=== PATIENT | male | born 1970 | race Caucasian/White ===

== ENCOUNTER 2018-01-10 13:32 | Emergency (ER) | payer MEDICARE, MEDICAID ==
--- NOTE | 2018-01-10 13:46 | Emergency Department Record ---
History of Present Illness - General Chief Complaint: Chest Pain Stated Complaint: chest pain,graham Time Seen by Provider: 01/10/18 13:34 Source: Patient Mode of Arrival: Ambulatory Limitations: No limitations - History of Present Illness Initial Comments: 47 yo male presents with chest pain and shortness of breath for about 3 hours. The onset was about 11am today. He states the pain is sharp. The pain radiates to the left arm. He states he feels short of breath as well. He denies a history of CAD. He states he has CHF and a history of PE. He had a heart cath in 2014 that did not demonstrate any occlusive CAD. He has some chronic leg swelling. No fever, chills, cough. He is on Eliquis for the diagnosis of PE. Dr Sauer is his body and fender mechanic. Complaint: Chest pain -: Hour(s) (3) Onset: During rest Pain Location: Substernal, Left chest Pain Radiation: LUE Severity: Moderate Quality: Aching, Other (sharp) Consistency: Constant Improves With: Nothing Worsens With: Inspiration Anginal Symptoms: Dyspnea Other Symptoms: Other - Related Data Home Medications Medication Instructions Recorded Confirmed Last Taken Duloxetine HCl [Cymbalta] 60 mg PO DAILY 01/10/18 01/10/18 Unknown Gabapentin [Neurontin] 100 mg PO DAILY 01/10/18 01/10/18 Unknown Metformin HCl 500 mg PO BID 01/10/18 01/10/18 Unknown Allergies Allergy/AdvReac Type Severity Reaction Status Date / Time No Known Drug Allergies Allergy Verified 06/29/15 11:32 Review of Systems Constitutional: Denies: Chills, Fever, Malaise, Weakness Eyes: Denies: Eye discharge ENT: Denies: Congestion, Throat pain Respiratory: Reports: Dyspnea. Denies: Cough, Hemoptysis, Stridor, Wheezes Cardiovascular: Reports: Chest pain, Edema. Denies: Palpitations, Syncope Endocrine: Denies: Fatigue Gastrointestinal: Denies: Abdominal pain, Diarrhea, Nausea, Vomiting Genitourinary: Denies: Hematuria, Urgency Musculoskeletal: Denies: Arthralgia, Back pain, Joint swelling, Myalgia Skin: Denies: Bruising, Change in color, Rash Neurological: Denies: Headache, Numbness, Vertigo, Weakness Psychiatric: Denies: Anxiety Hematological/Lymphatic: Reports: Blood Clots. Denies: Easy bleeding, Easy bruising Past Medical History - SOCIAL HISTORY Smoking Status: Former smoker - RESPIRATORY Hx Respiratory Disorders: Yes Hx Bronchitis: Yes Hx Sleep Apnea: Yes Hx of CPAP: Yes (machine not working) - CARDIOVASCULAR Hx Cardio Disorders: Yes Hx Cardiac Cath: Yes (06/2014 No CAD) Hx Chest Pain: Yes Hx Edema: Yes Hx Heart Attack: No Hx Irregular Heartbeat: Yes Hx Coronary Artery Disease: No Hx Coronary Artery Bypass Graft: No Hx Coronary Stent: No Comment:: mitral valve prolapse, stress test last spring - NEURO Hx Neuro Disorders: Yes Hx TIA: Yes (x2 ) - GI Hx GI Disorders: Yes Hx Crohn's Disease: Yes Hx Reflux: Yes Hx Rectal Bleeding: Yes Hx Wt Loss/Wt Gain: Yes Hx of Polyps: Yes Comment:: gain 40# in 1 year - Hx Genitourinary Disorders: No - ENDOCRINE Hx Endocrine Disorders: No Hx Diabetes: No Hx Thyroid Disease: No - MUSCULOSKELETAL Hx Musculoskeletal Disorders: Yes Hx Arthritis: Yes - PSYCH Hx Psych Problems: Yes Hx Anxiety: Yes Hx Depression: Yes Hx Suicide Attempt: Yes (16 years ago) - HEMATOLOGY/ONCOLOGY Hx Hematology/Oncology Disorders: No Family Medical History Hx Cancer: Grandparents Hx Depression: Mother Hx Diabetes: Mother Hx Heart Disease: Mother Hx HTN: Mother Hx Kidney Disease: Mother Hx Liver Disease: Mother Hx Seizures: Brother/Sister Physical Exam - General General Appearance: Alert, Oriented x3, Cooperative, No acute distress Limitations: No limitations - Head Head exam: Normal inspection - Eye Eye exam: Normal appearance, PERRL. negative: Conjunctival injection, Scleral icterus - ENT ENT exam: Normal exam, Mucous membranes moist Ear exam: Normal external inspection Nasal Exam: Normal inspection Mouth exam: Normal external inspection - Neck Neck exam: Normal inspection, Full ROM. negative: Tenderness - Respiratory Respiratory exam: Normal lung sounds bilaterally. negative: Accessory muscle use, Chest wall tenderness, Respiratory distress - Cardiovascular Cardiovascular Exam: Regular rate, Normal rhythm, Normal heart sounds. negative : Diastolic murmur, Systolic murmur Peripheral Pulses: 2+: Radial (R), Radial (L) - GI/Abdominal GI/Abdominal exam: Soft. negative: Tenderness - Rectal Rectal exam: Deferred - exam: Deferred - Extremities Extremities exam: Pedal edema (symmetric bilateral). negative: Normal inspection - Back Back exam: Denies: CVA tenderness (R), CVA tenderness (L) - Neurological Neurological exam: Alert, Oriented X3 - Psychiatric Psychiatric exam: Normal affect, Normal mood - Skin Skin exam: Dry, Intact, Normal color, Warm Course - Reevaluation(s) Reevaluation #1: EMR reviewed 2014 Admission for Chest Pain reviewed Patient had a cardiac cath at [facility] 06/2014 that was normal with normal coronaries Cardiology consult completed 08/2014. Negative enzymes. No other testing required. 01/10/18 13:39 EKG EKG #1: 1334 Rate: 106 Rhythm: sinus tachycardia [place]: R Intervals: Qtc [address] ST segments: NS poor R wave, R in V1, Prior: similar EKG 02/08/15 01/10/18 14:20 The WBC count is 16 The Troponin is normal The BNP is normal CTA of the chest ordered given his history of PE with some pain with inspiration GFR is normal with normal renal function. 01/10/18 15:18 EKG EKG #2: 1508 Rate: 85 Rhythm: sinus [place]: left Intervals: Qtc 464 ST segments: NS poor r wave progression, Prior: No dynamic changes from EKG #1 or prior 02/08/15 01/10/18 15:[address] of the chest is negative for PE or dissection. Dr Sauer's office was called. He is not in on Tuesdays. His mid level will call back. 01/10/18 16:10 I VÍCTOR Pena for Dr Sauer. The patient is well known to the clinic. The patient has had a normal cath in 2014, a second normal cath in 2016 and an NORMAL perfusion study 4 months ago in August. Additionally he has had 11 office visits and multiple ED visits with normal testing. The recommendation is for repeat Troponin. If negative the patient can be seen in the next 24 - 48 hours in the office. 01/10/18 18:21 The repeat troponin Dc home to follow up with his body and fender mechanic. Medical Decision Making - Lab Data Result diagrams: 01/10/18 13:44 01/10/18 13:44 Disposition Disposition: Discharge Clinical Impression: Chest pain Disposition: Home, Self-Care Condition: (1) Good Instructions: Chest Pain (ED) Additional Instructions: Call your body and fender mechanic tomorrow to schedule a recheck Return or be seen for a recheck in the next 1-2 days Forms: Patient Portal Access Time of Disposition: 18:22 Quality - Quality Measures Quality Measures: N/A - Blood Pressure Screening Does Patient Have Any of the Following: No Blood Pressure Classification: Normal BP Reading Systolic Measurement: 105 Diastolic Measurement: 54 Screening for High Blood Pressure: < Normal BP, F/U Not Required > [G8783] Pre-Hypertensive Follow-up Interventions: Referral to alternative/primary care provider.
[2018-01-10] MEDS ORDERED: MORPHINE SULFATE 10 MG/ML VIAL IVP ONE ×2 (13:50→15:03)
[2018-01-10] MEDS ORDERED: ASPIRIN 81 MG CHEWABLE TABLET PO ONE (13:50)
[2018-01-10 13:54] LABS: HEMATOCRIT 45.1 % (42.0-52.0); HEMOGLOBIN 15.1 gm/dl (14.0-18.0); MEAN CELL VOLUME 88.8 fl (81-97); MEAN CORPUSCULAR HEMOGLOBIN 29.7 pg (27-33); MEAN CORPUSCULAR HGB CONC 33.5 g/dl (32-36); MEAN PLATELET VOLUME 10.3 fl (7.4-10.4); PLATELET COUNT 328 K/uL (130-400); RED BLOOD COUNT 5.08 M/uL (4.40-5.70); RED CELL DISTRIBUTION WIDTH 13.8 % (11.5-14.5); WHITE BLOOD COUNT W/O DIFF 16.2 K/uL (4.2-12.2)
[2018-01-10] MEDS ORDERED: ONDANSETRON 4 MG ODT TABLET SL ONE (14:01)
[2018-01-10 14:06] LABS: BLOOD UREA NITROGEN 10 mg/dL (6-20); CREATININE 0.8 mg/dL (0.7-1.2); EST GLOMERULAR FILTRATION RATE > 60 mL/min
[2018-01-10 14:07] LABS: TOTAL PROTEIN 8.8 g/dL (6.6-8.7)
[2018-01-10 14:09] LABS: GLUCOSE,RANDOM 141 mg/dL (74-109)
[2018-01-10 14:10] LABS: INR 1.1; PARTIAL THROMBOPLASTIN TIME 29.9 SECONDS (24.5-39.1); PROTHROMBIN TIME (PATIENT) 11.4 SECONDS (9.5-12.1)
[2018-01-10 14:12] LABS: ALB/GLOB RATIO 1.3 (1.1-1.8); ALKALINE PHOSPHATASE 84 U/L (40-129); ALT/SGPT 40 U/L (<41); AST/SGOT 35 U/L (10.0-50.0)
[2018-01-10 14:14] LABS: NTpro B-NATRIURETIC PEPTIDE 25.26 pg/mL (<125)
== END 2018-01-10 18:29 | disposition home or self-care (01) ==
LOC: ER 13:32
DX: R07.2 Precordial pain (principal); M79.622 Pain in left upper arm; I50.9 Heart failure, unspecified; I34.1 Nonrheumatic mitral (valve) prolapse; Z86.711 Personal history of pulmonary embolism; Z79.01 Long term (current) use of anticoagulants; Z87.891 Personal history of nicotine dependence
CPT/HCPCS: 99284 ×2; 96376; 96374; 85730; 85610; 80053; 84484; 85027; 83880; 71275; 93005; 93010; Q9967; J2270

== ENCOUNTER 2018-01-13 23:34 | Emergency (ER) | payer MEDICARE, MEDICAID ==
[2018-01-13] MEDS ORDERED: 0.9 % SODIUM CHLORIDE 1000ML 1,000 ML IV SCH (23:45)
[2018-01-13] MEDS ORDERED: ONDANSETRON HCL IV 4 MG/2 ML VIAL IVP ONE (23:56)
[2018-01-13] MEDS ORDERED: HYOSCYAMINE SULFATE ODT 0.125 MG TAB.SUBL SL ONE (23:57)
--- NOTE | 2018-01-14 00:02 | Emergency Department Record ---
History of Present Illness - General Chief Complaint: Abdominal Pain Stated Complaint: ABDOMINAL PAIN Time Seen by Provider: 01/13/18 23:52 Source: Patient Mode of Arrival: Ambulatory Limitations: No limitations - History of Present Illness Initial Comments: 47 yo male presents to ED for evaluation of pain to the suprapubic region that began 3.5 hours ago associated with nausea/vomiting symptoms. Patient reports a history of crohn's disease, deneis blood in the stools, fevers, chills, or loose stools. Patient denies urinary symptoms as well. Patient was recent seen for chest pain symptoms 3 days ago with negative work-up. Patient also reports history of CHF, PE (both were negative on evaluation 3 days ago). MD Complaint: Abdominal pain Onset/Timin -: Hour(s) Location: Suprapubic Radiation: None Migration to: No migration Severity: Moderate Severity scale (1-10): 8 Quality: Sharp Consistency: Constant Improves With: Nothing Worsens With: Nothing Associated Symptoms: Diarrhea, Nausea, Vomiting - Related Data Previous Rx's Medication Instructions Recorded Prednisone [Prednisone 20Mg] 20 mg PO TID #12 tab 01/14/18 Allergies Allergy/AdvReac Type Severity Reaction Status Date / Time No Known Drug Allergies Allergy Verified 06/29/15 11:32 Travel Screening - Travel/Exposure Within Last 30 Days Have you traveled within the last 30 days?: No - Travel Symptoms Symptom Screening: None Review of Systems Constitutional: Denies: Chills, Fever, Malaise, Night sweats Eyes: Denies: Eye discharge, Eye pain ENT: Denies: Congestion, Ear pain, Epistaxis Respiratory: Denies: Cough, Dyspnea Cardiovascular: Denies: Chest pain, Dyspnea on exertion Endocrine: Denies: Fatigue, Heat or cold intolerance Gastrointestinal: Reports: Abdominal pain, Nausea, Vomiting. Denies: Constipation Genitourinary: Denies: Incontinence, Retention Musculoskeletal: Denies: Arthralgia, Back pain, Gout, Joint swelling Skin: Denies: Bruising, Change in color Neurological: Denies: Abnormal gait, Confusion, Headache, Seizure Psychiatric: Denies: Anxiety Hematological/Lymphatic: Denies: Anemia, Blood Clots Past Medical History - SOCIAL HISTORY Smoking Status: Former smoker - RESPIRATORY Hx Respiratory Disorders: Yes Hx Bronchitis: Yes Hx Sleep Apnea: Yes Hx of CPAP: Yes - CARDIOVASCULAR Hx Cardio Disorders: Yes Hx Cardiac Cath: Yes (06/2014 No CAD) Hx Chest Pain: Yes Hx Edema: Yes Hx Heart Attack: No Hx Irregular Heartbeat: Yes Hx Coronary Artery Disease: No Hx Coronary Artery Bypass Graft: No Hx Coronary Stent: No Comment:: mitral valve prolapse, stress test last spring - NEURO Hx Neuro Disorders: Yes Hx TIA: Yes (x2 2006/2006) - GI Hx GI Disorders: Yes Hx Crohn's Disease: Yes Hx Reflux: Yes Hx Rectal Bleeding: Yes Hx Wt Loss/Wt Gain: Yes Hx of Polyps: Yes Comment:: gain 40# in 1 year - Hx Genitourinary Disorders: No - ENDOCRINE Hx Endocrine Disorders: No Hx Diabetes: No Hx Thyroid Disease: No - MUSCULOSKELETAL Hx Musculoskeletal Disorders: Yes Hx Arthritis: Yes - PSYCH Hx Psych Problems: Yes Hx Anxiety: Yes Hx Depression: Yes Hx Suicide Attempt: Yes (16 years ago) - HEMATOLOGY/ONCOLOGY Hx Hematology/Oncology Disorders: No Family Medical History Any Significant Family History?: Yes Hx Cancer: Grandparents Hx Depression: Mother Hx Diabetes: Mother Hx Heart Disease: Mother Hx HTN: Mother Hx Kidney Disease: Mother Hx Liver Disease: Mother Hx Seizures: Brother/Sister Physical Exam - General General Appearance: Alert, Oriented x3, Cooperative, Mild distress Limitations: No limitations - Head Head exam: Atraumatic, Normocephalic, Normal inspection Head exam detail: negative: Abrasion, Contusion, Horn's sign, General tenderness, Hematoma, Laceration - Eye Eye exam: Normal appearance. negative: Conjunctival injection, Periorbital swelling, Periorbital tenderness, Scleral icterus - ENT Ear exam: negative: Auricular hematoma, Auricular trauma Nasal Exam: negative: Active bleeding, Discharge, Dried blood, Foreign body Mouth exam: negative: Drooling, Laceration, Muffled voice, Tongue elevation - Neck Neck exam: Normal inspection. negative: Meningismus, Tenderness - Respiratory Respiratory exam: Normal lung sounds bilaterally. negative: Rales, Respiratory distress, Rhonchi, Stridor - Cardiovascular Cardiovascular Exam: Regular rate, Normal rhythm, Normal heart sounds - GI/Abdominal GI/Abdominal exam: Soft, Tenderness (TTP over the suprapubic region withotu rebound, guarding, or peritoneal signs present.). negative: Rebound, Rigid - Rectal Rectal exam: Deferred - exam: Deferred - Extremities Extremities exam: Normal inspection. negative: Calf tenderness, Pedal edema, Tenderness - Back Back exam: Denies: CVA tenderness (R), CVA tenderness (L) - Neurological Neurological exam: Alert, Normal gait, Oriented X3 - Psychiatric Psychiatric exam: Normal affect, Normal mood - Skin Skin exam: Normal color. negative: Abrasion Type of lesion: negative: abrasion Course Vital Signs 01/13/18 23:40 Temperature 97.9 F Pulse Rate 92 H Respiratory 16 Rate Blood Pressure 100/61 Pulse Ox 96 - Reevaluation(s) Reevaluation #1: 01/14/18 00:01 Previous records were reviewed from 01/10/18 Negative CTA chest and cardiac evaluation following negative heart cath 2017, negative stress testing 4 months ago. Will adminsiter IVFs pending CT Abdomen and pelvis to exclude crohn's flare, Levsin, and Zofran as directed. Reevaluation #2: 01/14/18 00:37 Labs reviewed, WBC 13.8 Labs are otherwise unremarkable for an acute process. Reevaluation #3: 01/14/18 01:08 CT Abdomen and Pelvis: Bladder wall is thickened, may be related to under distention vs. cystitis Mild heterogeneity of the kidneys suspicious for pyelonephritis Mild thickening of the rectum and recto-sigmoid junction which could represent underdistion vs. mild colitis Patient was updated on his CT imaging and laboratory studies, UA is negative for infection. Given the patient's clinical examination, symptoms are likely to be the result of inflammatory changes related to colitis. Will initiate treatment with solumedrol in ED and Prednisone with instructions to follow-up with [facility] specialist ([facility]) next Tuesday/Tuesday. Medical Decision Making - Lab Data Result diagrams: 01/13/18 23:52 01/13/18 23:52 Disposition Disposition: Discharge Clinical Impression: Colitis Disposition: Home, Self-Care Condition: (2) Stable Instructions: Crohn Disease (ED) Additional Instructions: Return to ED if your symptoms worsen or if you have any concerns. Prednisone as directed. Follow-up with your family doctor in 3-5 days as directed. Prescriptions: Prednisone [Prednisone 20Mg] 20 mg PO TID #12 tab Forms: Patient Portal Access Time of Disposition: : Quality - Quality Measures Quality Measures: N/A - Blood Pressure Screening Does Patient Have Any of the Following: No Blood Pressure Classification: Normal BP Reading Systolic Measurement: 100 Diastolic Measurement: 61 Screening for High Blood Pressure: < Normal BP, F/U Not Required > [G8263]
[2018-01-14 00:05] LABS: HEMATOCRIT 40.6 % (42.0-52.0); HEMOGLOBIN 13.1 gm/dl (14.0-18.0); MEAN CELL VOLUME 89.8 fl (81-97); MEAN CORPUSCULAR HEMOGLOBIN 28.9 pg (27-33); MEAN CORPUSCULAR HGB CONC 32.3 g/dl (32-36); MEAN PLATELET VOLUME 10.3 fl (7.4-10.4); PLATELET COUNT 282 K/uL (130-400); RED BLOOD COUNT 4.52 M/uL (4.40-5.70); RED CELL DISTRIBUTION WIDTH 13.6 % (11.5-14.5); WHITE BLOOD COUNT W/O DIFF 13.8 K/uL (4.2-12.2)
[2018-01-14 00:19] LABS: URINE APPEARANCE CLEAR; URINE BILIRUBIN NEGATIVE (NEGATIVE); URINE BLOOD NEGATIVE (NEGATIVE); URINE COLOR YELLOW; URINE GLUCOSE (UA) NEGATIVE (NEGATIVE); URINE KETONE NEGATIVE (NEGATIVE); URINE LEUKOCYTE ESTERASE NEGATIVE (NEGATIVE); URINE NITRITE NEGATIVE (NEGATIVE); URINE PROTEIN NEGATIVE (NEGATIVE); URINE UROBILINOGEN 0.2 E.U./dL (0.20 - 1.00)
[2018-01-14 00:34] LABS: ALB/GLOB RATIO 1.2 (1.1-1.8); ALKALINE PHOSPHATASE 79 U/L (40-129); ALT/SGPT 38 U/L (<41); AST/SGOT 25 U/L (10.0-50.0); BLOOD UREA NITROGEN 9 mg/dL (6-20); CREATININE 0.6 mg/dL (0.7-1.2); EST GLOMERULAR FILTRATION RATE > 60 mL/min; GLUCOSE,RANDOM 142 mg/dL (74-109); LIPASE 22 U/L (13-60); TOTAL PROTEIN 7.4 g/dL (6.6-8.7)
[2018-01-14 00:41] LABS: PLATELET ESTIMATE NORMAL (NORMAL)
[2018-01-14] MEDS ORDERED: METHYLPREDNISOLONE PF 125MG/VIAL IVP ONE (01:03)
--- NOTE | 2018-01-17 09:38 | CT SCAN REPORT ---
EXAM: CT SCAN OF THE ABDOMEN AND PELVIS WITH CONTRAST HISTORY: SUPRAPUBIC ABDOMINAL PAIN. NAUSEA, VOMITING, AND DIARRHEA. PERIUMBILICAL PAIN. TECHNIQUE: Standard CT imaging of the abdomen and pelvis was performed with intravenous contrast. 100 ml of Omnipaque 300 were administered. Comparison: None. FINDINGS: The lung bases are clear. There is mild fatty infiltration of the liver. The gallbladder is surgically absent. There is no biliary ductal dilatation. The pancreas, spleen, and adrenal glands are normal. There is a 1 cm hypodensity at the superior pole of the left kidney which is suggestive of a small cyst. There is minor heterogeneity within both kidneys. There is no significant surrounding perinephric fat stranding. There is no hydronephrosis or calculus. The ureters are unremarkable. The aorta is normal in caliber. There is no retroperitoneal lymphadenopathy. Scattered nonenlarged retroperitoneal and mesenteric lymph nodes are present. The colon is nondistended. There are no acute bowel inflammatory changes. The appendix is visualized and is normal. There is no pneumoperitoneum or ascites. There is abnormal wall thickening of the urinary bladder which is suspicious for cystitis. No focal bladder abnormalities are identified. The prostate gland is normal in size. The abdominal wall appears normal. There are no acute osseous abnormalities. IMPRESSION: 1. ABNORMAL WALL THICKENING OF THE URINARY BLADDER WHICH IS SUSPICIOUS FOR CYSTITIS. CORRELATE WITH THE URINALYSIS FINDINGS. 2. MINOR HETEROGENEITY OF THE KIDNEYS WITH NO CONVINCING EVIDENCE OF ACUTE PYELONEPHRITIS. 3. PROBABLE SMALL CORTICAL CYST AT THE SUPERIOR POLE OF THE LEFT KIDNEY. JOB NUMBER: [id number] [facility]
== END 2018-01-14 01:34 | disposition home or self-care (01) ==
LOC: ER 23:34
DX: K52.9 Noninfective gastroenteritis and colitis, unspecified (principal); R10.33 Periumbilical pain; R11.2 Nausea with vomiting, unspecified; I50.9 Heart failure, unspecified; Z87.891 Personal history of nicotine dependence
CPT/HCPCS: 99284 ×2; 96374; 96361; 83690; 80053; 81003; 85027; 74177; Q9967; J1980; J2405; J2930; J7030

== ENCOUNTER 2018-01-16 03:00 | Emergency (ER) | payer MEDICARE, MEDICAID ==
--- NOTE | 2018-01-16 03:49 | Emergency Department Record ---
History of Present Illness - General Chief complaint: Lower Extremity Pain Stated complaint: i HAVE PVD AND MY LEGS HURT Time Seen by Provider: 01/16/18 03:04 Source: Patient Mode of Arrival: Ambulatory Limitations: No limitations - History of Present Illness Initial comments: 47 yo male presents with chronic leg pain for about 5 months he states is due to PVD. He states for months he has had pain with walking and trouble sleeping due to pain. He has an appointment with vascular surgery later this month to discuss recent arterial tests. On 12/20/17 he had Bilateral Lower Extremity US that demonstrated a Right CHRISTIAN of 0.93 and a Left CHRISTIAN of 0.8 consistent with single segment occlusive disease. He had a CTA of the abdomen and Pelvis on 12/14 that was negative. Including no stenosis on the right and left of the BEBA, EIA, and LINEN ATTENDANT. No abnormal warmth. No abnormal coolness. The feet have had a slight bluish appearance chronically without changes. Onset/Timin -: Month(s) Location: Bilateral, Lower Leg History of Same: Yes Severity scale (1-10): 8 Quality: Aching, Dull Consistency: Constant Improves with: Nothing Worsens with: Exertion, Walking Associated Symptoms: Denies other symptoms - Related Data Previous Rx's Medication Instructions Recorded Prednisone [Prednisone 20Mg] 20 mg PO TID #12 tab 01/14/18 Allergies Allergy/AdvReac Type Severity Reaction Status Date / Time No Known Drug Allergies Allergy Verified 06/29/15 11:32 Travel Screening - Travel/Exposure Within Last 30 Days Have you traveled within the last 30 days?: No - Travel/Exposure Within Last Year Have you traveled outside the [place] in the last year?: No - Additonal Travel Details Have you been exposed to anyone with a communicable illness?: No - Travel Symptoms Symptom Screening: None Review of Systems Constitutional: Denies: Chills, Fever, Malaise, Weakness Eyes: Denies: Eye discharge ENT: Denies: Congestion, Throat pain Respiratory: Denies: Cough Cardiovascular: Reports: Chest pain (last week). Denies: Palpitations, Syncope Endocrine: Denies: Fatigue Gastrointestinal: Denies: Abdominal pain, Diarrhea, Nausea, Vomiting Genitourinary: Denies: Frequency, Hematuria Musculoskeletal: Reports: As per HPI, Myalgia. Denies: Arthralgia, Back pain Skin: Reports: As per HPI, Change in color Neurological: Denies: Confusion Psychiatric: Denies: Anxiety Hematological/Lymphatic: Denies: Blood Clots, Easy bleeding, Easy bruising, Swollen glands Past Medical History - SOCIAL HISTORY Smoking Status: Former smoker Alcohol Use: None Drug Use: None - RESPIRATORY Hx Respiratory Disorders: Yes Hx Bronchitis: Yes Hx Sleep Apnea: Yes Hx of CPAP: Yes - CARDIOVASCULAR Hx Cardio Disorders: Yes Hx Cardiac Cath: Yes (06/2014 No CAD) Hx Chest Pain: Yes Hx CHF: Yes Hx Edema: Yes Hx Heart Attack: No Hx Irregular Heartbeat: Yes Hx Coronary Artery Disease: No Hx Coronary Artery Bypass Graft: No Hx Coronary Stent: No Comment:: mitral valve prolapse, stress test last spring - NEURO Hx Neuro Disorders: Yes Hx TIA: Yes (x2 ) - GI Hx GI Disorders: Yes Hx Crohn's Disease: Yes Hx Reflux: Yes Hx Rectal Bleeding: Yes Hx Wt Loss/Wt Gain: Yes Hx of Polyps: Yes Comment:: gain 40# in 1 year - Hx Genitourinary Disorders: No - ENDOCRINE Hx Endocrine Disorders: Yes Hx Diabetes: Yes Hx Thyroid Disease: No - MUSCULOSKELETAL Hx Musculoskeletal Disorders: Yes Hx Arthritis: Yes - PSYCH Hx Psych Problems: Yes Hx Anxiety: Yes Hx Depression: Yes Hx Suicide Attempt: Yes (16 years ago) - HEMATOLOGY/ONCOLOGY Hx Hematology/Oncology Disorders: No Family Medical History Any Significant Family History?: No Hx Cancer: Grandparents Hx Depression: Mother Hx Diabetes: Mother Hx Heart Disease: Mother Hx HTN: Mother Hx Kidney Disease: Mother Hx Liver Disease: Mother Hx Seizures: Brother/Sister Physical Exam - General General Appearance: Alert, Oriented x3, Cooperative, No acute distress Limitations: No limitations - Head Head exam: Normal inspection - Eye Eye exam: Normal appearance. negative: Conjunctival injection - ENT ENT exam: Normal exam Ear exam: Normal external inspection Nasal Exam: Normal inspection Mouth exam: Normal external inspection - Neck Neck exam: Normal inspection - Respiratory Respiratory exam: Normal lung sounds bilaterally. negative: Respiratory distress - Cardiovascular Cardiovascular Exam: Regular rate, Normal rhythm, Normal heart sounds Peripheral Pulses: 1+: Dorsalis Pedis (R), Dorsalis Pedis (L), 2+: Radial (R), Radial (L) - GI/Abdominal GI/Abdominal exam: Soft. negative: Tenderness - Extremities Extremities exam: Full ROM, Normal capillary refill, Pedal edema (chronic ), Tenderness, Other (The feet are warth with good cap refill, no abnormal coolness or warmth, no signs of arterial insufficiency, no signs of infection, intact skin). negative: Calf tenderness, Joint swelling - Back Back exam: Denies: CVA tenderness (R), CVA tenderness (L) - Neurological Neurological exam: Alert, Oriented X3 - Psychiatric Psychiatric exam: Normal affect, Normal mood - Skin Skin exam: Dry, Intact, Normal color, Warm Course Vital Signs 01/16/18 03:06 Temperature 98.3 F Pulse Rate 92 H Respiratory 22 Rate Blood Pressure 103/60 Pulse Ox 97 - Reevaluation(s) Reevaluation #1: The prior studies were reviewed No significant occlusive disease noted with CHRISTIAN's of 0.9 and 0.8 with normal CTA of the abdomen and pelvis. DC home after an unremarkable examination for acute changes to his chronic condition. 01/16/18 03:51 Disposition Disposition: Discharge Clinical Impression: Chronic leg pain Disposition: Home, Self-Care Condition: (1) Good Instructions: Peripheral Vascular Disease (ED) Additional Instructions: Call your family doctor. Call to schedule the next available appointment for a recheck. Return to ED if your symptoms worsen or if you have any new concerns. Time of Disposition: 03:53 Quality - Quality Measures Quality Measures: N/A - Blood Pressure Screening Does Patient Have Any of the Following: Active Dx of HTN Blood Pressure Classification: Normal BP Reading Systolic Measurement: 103 Diastolic Measurement: 60 Screening for High Blood Pressure: Patient Exclusion, Hx of HTN [G9744]
== END 2018-01-16 04:03 | disposition home or self-care (01) ==
LOC: ER 03:00
DX: M79.661 Pain in right lower leg (principal); G89.29 Other chronic pain; I50.9 Heart failure, unspecified; E11.9 Type 2 diabetes mellitus without complications; I10 Essential (primary) hypertension; Z79.84 Long term (current) use of oral hypoglycemic drugs; Z87.891 Personal history of nicotine dependence
CPT/HCPCS: 99282

== ENCOUNTER 2018-02-02 20:07 | Emergency (ER) | payer MEDICARE, MEDICAID ==
[2018-02-02] MEDS ORDERED: 0.9 % SODIUM CHLORIDE 1,000 ML BAG IV ONE (20:57)
[2018-02-02] MEDS ORDERED: ONDANSETRON HCL IV 4 MG/2 ML VIAL IV ONE (20:57)
--- NOTE | 2018-02-02 21:02 | Emergency Department Record ---
History of Present Illness - General Chief Complaint: Back Pain/Injury Stated Complaint: BACK PAIN Time Seen by Provider: 02/02/18 20:38 Source: Patient - History of Present Illness Initial Comments: Joan the patient has an increase in his chronic back pain since 1600 today. He took tylenol, applied heat, and put on his back brace at 1900 which has not helped. He states the pain is at the exact same levels as before, that it radiates down to his calf on the right and to his knee on the left which is unchanged in pattern. He also denies bowel or bladder incontinence or retention , and denies numbness or changes in his perineum. He vomited once upon arrival here. He ses Dr. Pozo at [facility]. The patient has multiple medical problems including chronic back pain since l992 for which he is on disability. He has two known herniated discs diagnosed by Dr. Bragg in the past 5 years. He was instructed to lose weight before getting surgery. In the meantime, Dr. Bragg gaave him 2 separate facet blocks which hestates did not work. The patient has had [address] scans in the past month for evaluation of his crohn's disease because of abdominal pain. He states his crohn's is at it's baseline currently. He has a history of Diabetes type 2 and takes metformin, CHF for which he takes bumex TID, and chronic welling to his feet, ankles and leg. Onset/Timin -: Days(s) Similar Symptoms Previously: No Severity scale (1-10): 9 Quality: Sharp, Stabbing Consistency: Constant, Getting worse Improves With: None Worsens With: None Treatments Prior to Arrival: Acetaminophen - Related Data Home Medications Medication Instructions Recorded Confirmed Last Taken Bumetanide [Bumex] 1 mg PO TID 02/02/18 02/02/18 Unknown Cariprazine HCl [Vraylar] 6 mg PO DAILY 02/02/18 02/02/18 Unknown Allergies Allergy/AdvReac Type Severity Reaction Status Date / Time NSAIDS (Non-Steroidal AdvReac Instructed Verified 02/02/18 20:26 Anti-Inflamma to avoid Travel Screening - Travel/Exposure Within Last 30 Days Have you traveled within the last 30 days?: No Review of Systems Reviewed: No additional complaints except as noted below Constitutional: Reports: As per HPI. Denies: Chills, Fever, Malaise, Night sweats, Weakness, Weight change Eyes: Reports: As per HPI. Denies: Eye discharge, Eye pain, Photophobia, Vision change ENT: Reports: As per HPI. Denies: Congestion, Dental pain, Ear pain, Epistaxis , Hearing loss, Throat pain Respiratory: Reports: As per HPI. Denies: Cough, Dyspnea, Hemoptysis, Stridor, Wheezes Cardiovascular: Reports: As per HPI. Denies: Arrhythmia, Chest pain, Dyspnea on exertion, Edema, Murmurs, Orthopnea, Palpitations, Paroxysmal nocturnal dyspnea, Rheumatic Fever, Syncope Endocrine: Reports: As per HPI. Denies: Fatigue, Heat or cold intolerance, Polydipsia, Polyuria Gastrointestinal: Reports: As per HPI. Denies: Abdominal pain, Constipation, Diarrhea, Hematemesis, Hematochezia, Melena, Nausea, Vomiting Genitourinary: Reports: As per HPI. Denies: Dysuria, Frequency, Hematuria, Incontinence, Retention, Testicular pain, Testicular mass, Urgency Musculoskeletal: Reports: As per HPI. Denies: Arthralgia, Back pain, Gout, Joint swelling, Myalgia, Neck pain Skin: Reports: As per HPI. Denies: Bruising, Change in color, Change in hair/ nails, Lesions, Pruritus, Rash Neurological: Reports: As per HPI. Denies: Abnormal gait, Confusion, Headache, Numbness, Paresthesias, Seizure, Tingling, Tremors, Vertigo, Weakness Psychiatric: Reports: As per HPI. Denies: Anxiety, Auditory hallucinations, Depression, Homicidal thoughts, Suicidal thoughts, Visual hallucinations Hematological/Lymphatic: Reports: As per HPI. Denies: Anemia, Blood Clots, Easy bleeding, Easy bruising, Swollen glands Past Medical History - SOCIAL HISTORY Smoking Status: Former smoker - RESPIRATORY Hx Respiratory Disorders: Yes Hx Bronchitis: Yes Hx Sleep Apnea: Yes Hx of CPAP: Yes - CARDIOVASCULAR Hx Cardio Disorders: Yes Hx Cardiac Cath: Yes (06/2014 No CAD) Hx Chest Pain: Yes Hx CHF: Yes Hx Edema: Yes Hx Heart Attack: No Hx Irregular Heartbeat: Yes Hx Coronary Artery Disease: No Hx Coronary Artery Bypass Graft: No Hx Coronary Stent: No Comment:: mitral valve prolapse, stress test last spring - NEURO Hx Neuro Disorders: Yes Hx TIA: Yes (x2 ) - GI Hx GI Disorders: Yes Hx Crohn's Disease: Yes Hx Reflux: Yes Hx Rectal Bleeding: Yes Hx Wt Loss/Wt Gain: Yes Hx of Polyps: Yes Comment:: gain 40# in 1 year - Hx Genitourinary Disorders: No - ENDOCRINE Hx Endocrine Disorders: Yes Hx Diabetes: Yes Hx Thyroid Disease: No - MUSCULOSKELETAL Hx Musculoskeletal Disorders: Yes Hx Arthritis: Yes - PSYCH Hx Psych Problems: Yes Hx Anxiety: Yes Hx Depression: Yes Hx Suicide Attempt: Yes (16 years ago) - HEMATOLOGY/ONCOLOGY Hx Hematology/Oncology Disorders: No Family Medical History Any Significant Family History?: Yes Hx Cancer: Grandparents Hx Depression: Mother Hx Diabetes: Mother Hx Heart Disease: Mother Hx HTN: Mother Hx Kidney Disease: Mother Hx Liver Disease: Mother Hx Seizures: Brother/Sister Physical Exam - General General Appearance: Alert, Oriented x3, Cooperative, Moderate distress, Other ( morbidly obese laying on his left sied on the cart.) - Head Head exam: Normal inspection - Eye Eye exam: Normal appearance, PERRL Pupils: Normal accommodation - ENT ENT exam: Normal exam, Mucous membranes moist, Normal external ear exam, Normal orophraynx, TM's normal bilaterally Ear exam: Normal external inspection. negative: External canal tenderness Nasal Exam: Normal inspection. negative: Discharge, Sinus tenderness Mouth exam: Normal external inspection, Tongue normal Teeth exam: Normal inspection. negative: Dental caries Throat exam: Normal inspection. negative: Tonsillar erythema, Tonsillar exudate - Neck Neck exam: Normal inspection, Full ROM. negative: Lymphadenopathy, Meningismus , Tenderness - Respiratory Respiratory exam: Normal lung sounds bilaterally. negative: Respiratory distress - Cardiovascular Cardiovascular Exam: Normal rhythm, Normal heart sounds, Tachycardia - GI/Abdominal GI/Abdominal exam: Soft, Normal bowel sounds, Other (morbidly obese adomen with no new tenderness on palpation). negative: Rebound, Rigid, Tenderness - Rectal Rectal exam: Deferred, Other (perineum tested for pinprick and rectal tone--all normal) - exam: Deferred - Extremities Extremities exam: Normal inspection, Full ROM, Normal capillary refill, Pedal edema (bilaterally equal, chronic, up to above ankles, and at baseline per patient). negative: Calf tenderness, Tenderness - Back Back exam: Reports: Normal inspection, Full ROM, Muscle spasm (lumbar tightness on palpation). Denies: CVA tenderness (R), CVA tenderness (L), Rash noted, Tenderness - Neurological Neurological exam: Abnormal gait (antalgic), Alert, CN II-XII intact, Oriented X3, Other (subjective numbness down right leg to calf, and down left leg to knee ) - Psychiatric Psychiatric exam: Normal affect, Normal mood - Skin Skin exam: Dry, Intact, Normal color, Warm Course Vital Signs 02/02/18 20:15 Temperature 98.3 F Pulse Rate 115 H Respiratory 20 Rate Blood Pressure 116/49 Pulse Ox 99 - Reevaluation(s) Reevaluation #1: Not much relief with norflex. Patient is driving, so he will go home and follow up with his PCP. Lidoderm patch and ofirmev given. 02/02/18 21:46 02/02/18 23:51 Reevaluation #2: Patient states his back pain has improved, but he 'feels like his lungs are burning,' and he has a cough without congestion or sore throat. He has not had his bumex yet tonight, so will order it IV and get a duoneb and recheck. 02/02/18 23:05 Long discussion with patient about his numerous medical problems and need for follow up for the chronic conditions. He states the burning in his lungs is the only thing new and he is comfortable with the plan to go home tonight, sleep upright as he has before, use throat sprays and lozenges as needed, and follow up with his PCP in the office in the a.m. He states he will return if he worsens. He is not hypoxic or tachycardic. He currently has no symptoms of shortness of breath, cough, or dyspnea. He urinated a large amount of urine after his IV bumex. 02/02/18 23:06 02/02/18 23:51 Medical Decision Making - Management Options MDM Management: No Additional Work-up Planned - Data Complexity MDM Data: Labs Ordered and/or Reviewed - Lab Data Result diagrams: 02/02/18 21:09 02/02/18 21:09 Disposition Disposition: Discharge Clinical Impression: Low back pain radiating down leg, Chronic radicular pain of lower back Disposition: Home, Self-Care Condition: (1) Good Instructions: Low Back Strain (ED), Lumbar Radiculopathy (ED) Additional Instructions: Continue present medications. No lifting bending or twisting. Follow up with PCP in the a.m. without fail for recheck. Return to EDept if worsened. Quality - Quality Measures Quality Measures: N/A - Blood Pressure Screening Does Patient Have Any of the Following: No Blood Pressure Classification: Normal BP Reading Systolic Measurement: 116 Diastolic Measurement: 49 Screening for High Blood Pressure: < Normal BP, F/U Not Required > [G5781]
[2018-02-02] MEDS ORDERED: ORPHENADRINE CITRATE 60MG/2ML VIAL IVP ONE (21:05)
[2018-02-02 21:13] LABS: HEMATOCRIT 37.6 % (42.0-52.0); MEAN CELL VOLUME 90.2 fl (81-97); MEAN CORPUSCULAR HGB CONC 31.9 g/dl (32-36); MEAN PLATELET VOLUME 9.7 fl (7.4-10.4); PLATELET COUNT 245 K/uL (130-400); RED BLOOD COUNT 4.17 M/uL (4.40-5.70); RED CELL DISTRIBUTION WIDTH 13.5 % (11.5-14.5); WHITE BLOOD COUNT W/O DIFF 9.2 K/uL (4.2-12.2)
[2018-02-02 21:14] LABS: MEAN CORPUSCULAR HEMOGLOBIN 28.7 pg (27-33)
[2018-02-02 21:15] LABS: URINE APPEARANCE CLEAR; URINE BACTERIA NONE SEEN; URINE BILIRUBIN NEGATIVE (NEGATIVE); URINE BLOOD TRACE-L (NEGATIVE); URINE COLOR YELLOW; URINE EPITHELIAL CELLS 0 - 2 (FEW); URINE GLUCOSE (UA) NEGATIVE (NEGATIVE); URINE KETONE NEGATIVE (NEGATIVE); URINE LEUKOCYTE ESTERASE NEGATIVE (NEGATIVE); URINE NITRITE NEGATIVE (NEGATIVE); URINE PROTEIN NEGATIVE (NEGATIVE); URINE UROBILINOGEN 0.2 E.U./dL (0.20 - 1.00); URINE WBC 0 - 2 (0-2/hpf)
[2018-02-02 21:24] LABS: BLOOD UREA NITROGEN 5 mg/dL (6-20); CREATININE 0.6 mg/dL (0.7-1.2); EST GLOMERULAR FILTRATION RATE > 60 mL/min
[2018-02-02 21:25] LABS: TOTAL PROTEIN 6.8 g/dL (6.6-8.7)
[2018-02-02 21:27] LABS: GLUCOSE,RANDOM 218 mg/dL (74-109)
[2018-02-02 21:29] LABS: ALT/SGPT 38 U/L (<41)
[2018-02-02 21:30] LABS: ALB/GLOB RATIO 1.3 (1.1-1.8); ALBUMIN 3.8 g/dL (4.0-5.0); ALKALINE PHOSPHATASE 69 U/L (40-129); AST/SGOT 26 U/L (10.0-50.0)
[2018-02-02 21:32] LABS: NTpro B-NATRIURETIC PEPTIDE 35.44 pg/mL (<125)
[2018-02-02] MEDS ORDERED: ACETAMINOPHEN 1,000 MG/100 ML BTL IVPB ONE (21:43)
[2018-02-02] MEDS ORDERED: LIDOCAINE 5% PATCH TOP ONE (21:44)
[2018-02-02] MEDS ORDERED: POTASSIUM CHLORIDE 20 MEQ TABLET PO ONE (21:45)
[2018-02-02] MEDS ORDERED: BUMETANIDE IV 0.25 MG/ML VIAL IVP ONE (23:04)
[2018-02-02] MEDS ORDERED: IPRATROPIUM/ALBUTEROL (0.5MG/3MG) NEB INH ONE (23:04)
== END 2018-02-03 00:01 | disposition home or self-care (01) ==
LOC: ER 20:07
DX: M54.16 Radiculopathy, lumbar region (principal); E11.9 Type 2 diabetes mellitus without complications; I50.9 Heart failure, unspecified; Z79.84 Long term (current) use of oral hypoglycemic drugs; Z86.73 Personal history of transient ischemic attack (TIA), and cerebral infarction without residual deficits; Z87.891 Personal history of nicotine dependence
CPT/HCPCS: 99284 ×2; 96365; 96375; 80053; 81001; 85027; 83880; J2405; J2360; J7030

== ENCOUNTER 2018-02-03 11:30 | Emergency (ER) | payer MEDICARE, MEDICAID ==
[2018-02-03] MEDS ORDERED: IPRATROPIUM/ALBUTEROL (0.5MG/3MG) NEB INH ONE (11:58)
[2018-02-03 12:22] LABS: HEMATOCRIT 37.3 % (42.0-52.0); HEMOGLOBIN 12.2 gm/dl (14.0-18.0); MEAN CELL VOLUME 90.5 fl (81-97); MEAN CORPUSCULAR HEMOGLOBIN 29.6 pg (27-33); MEAN CORPUSCULAR HGB CONC 32.7 g/dl (32-36); MEAN PLATELET VOLUME 9.9 fl (7.4-10.4); PLATELET COUNT 245 K/uL (130-400); RED BLOOD COUNT 4.12 M/uL (4.40-5.70); RED CELL DISTRIBUTION WIDTH 13.6 % (11.5-14.5); WHITE BLOOD COUNT W/O DIFF 7.4 K/uL (4.2-12.2)
[2018-02-03 12:33] LABS: BLOOD UREA NITROGEN 4 mg/dL (6-20); CREATININE 0.6 mg/dL (0.7-1.2); EST GLOMERULAR FILTRATION RATE > 60 mL/min
[2018-02-03 12:34] LABS: TOTAL PROTEIN 7.1 g/dL (6.6-8.7)
[2018-02-03 12:36] LABS: GLUCOSE,RANDOM 192 mg/dL (74-109)
[2018-02-03 12:38] LABS: ALB/GLOB RATIO 1.3 (1.1-1.8); ALKALINE PHOSPHATASE 70 U/L (40-129); ALT/SGPT 43 U/L (<41); AST/SGOT 30 U/L (10.0-50.0)
[2018-02-03 12:43] LABS: NTpro B-NATRIURETIC PEPTIDE 32.39 pg/mL (<125)
--- NOTE | 2018-02-03 14:38 | Emergency Department Record ---
History of Present Illness - General Chief Complaint: Cough Stated Complaint: COUGH Time Seen by Provider: 02/03/18 11:51 Source: Patient Mode of Arrival: Ambulatory Limitations: No limitations - History of Present Illness Initial Comments: pt c/o sob and non prod cough. he was here las pm for back pain MD Complaint: Cough, Nasal congestion Onset/Timin -: Hour(s) Severity scale (1-10): 8 Consistency: Constant Worsens With: Nothing Associated Symptoms: Cough, Nasal congestion - Related Data Allergies Allergy/AdvReac Type Severity Reaction Status Date / Time NSAIDS (Non-Steroidal AdvReac Instructed Verified 02/03/18 11:43 Anti-Inflamma to avoid Travel Screening - Travel/Exposure Within Last 30 Days Have you traveled within the last 30 days?: No - Travel/Exposure Within Last Year Have you traveled outside the [place] in the last year?: No - Additonal Travel Details Have you been exposed to anyone with a communicable illness?: No Review of Systems Reviewed: No additional complaints except as noted below Constitutional: Reports: As per HPI. Denies: Chills, Fever, Malaise, Night sweats, Weakness, Weight change Eyes: Reports: As per HPI. Denies: Eye discharge, Eye pain, Photophobia, Vision change ENT: Reports: As per HPI. Denies: Congestion, Dental pain, Ear pain, Epistaxis , Hearing loss, Throat pain Respiratory: Reports: As per HPI, Cough, Dyspnea. Denies: Hemoptysis, Stridor, Wheezes Cardiovascular: Reports: As per HPI. Denies: Arrhythmia, Chest pain, Dyspnea on exertion, Edema, Murmurs, Orthopnea, Palpitations, Paroxysmal nocturnal dyspnea, Rheumatic Fever, Syncope Endocrine: Reports: As per HPI. Denies: Fatigue, Heat or cold intolerance, Polydipsia, Polyuria Gastrointestinal: Reports: As per HPI. Denies: Abdominal pain, Constipation, Diarrhea, Hematemesis, Hematochezia, Melena, Nausea, Vomiting Genitourinary: Reports: As per HPI. Denies: Dysuria, Frequency, Hematuria, Incontinence, Retention, Testicular pain, Testicular mass, Urgency Musculoskeletal: Reports: As per HPI. Denies: Arthralgia, Back pain, Gout, Joint swelling, Myalgia, Neck pain Skin: Reports: As per HPI. Denies: Bruising, Change in color, Change in hair/ nails, Lesions, Pruritus, Rash Neurological: Reports: As per HPI. Denies: Abnormal gait, Confusion, Headache, Numbness, Paresthesias, Seizure, Tingling, Tremors, Vertigo, Weakness Psychiatric: Reports: As per HPI. Denies: Anxiety, Auditory hallucinations, Depression, Homicidal thoughts, Suicidal thoughts, Visual hallucinations Hematological/Lymphatic: Reports: As per HPI. Denies: Anemia, Blood Clots, Easy bleeding, Easy bruising, Swollen glands Past Medical History - SOCIAL HISTORY Smoking Status: Former smoker Alcohol Use: None Drug Use: None - RESPIRATORY Hx Respiratory Disorders: Yes Hx Bronchitis: Yes Hx Sleep Apnea: Yes Hx of CPAP: Yes - CARDIOVASCULAR Hx Cardio Disorders: Yes Hx Cardiac Cath: Yes (06/2014 No CAD) Hx Chest Pain: Yes Hx CHF: Yes Hx Edema: Yes Hx Heart Attack: No Hx Irregular Heartbeat: Yes Hx Coronary Artery Disease: No Hx Coronary Artery Bypass Graft: No Hx Coronary Stent: No Comment:: mitral valve prolapse, stress test last spring - NEURO Hx Neuro Disorders: Yes Hx TIA: Yes (x2 ) - GI Hx GI Disorders: Yes Hx Crohn's Disease: Yes Hx Reflux: Yes Hx Rectal Bleeding: Yes Hx Wt Loss/Wt Gain: Yes Hx of Polyps: Yes Comment:: gain 40# in 1 year - Hx Genitourinary Disorders: No - ENDOCRINE Hx Endocrine Disorders: Yes Hx Diabetes: Yes Hx Thyroid Disease: No - MUSCULOSKELETAL Hx Musculoskeletal Disorders: Yes Hx Arthritis: Yes - PSYCH Hx Psych Problems: Yes Hx Anxiety: Yes Hx Depression: Yes Hx Suicide Attempt: Yes (16 years ago) - HEMATOLOGY/ONCOLOGY Hx Hematology/Oncology Disorders: No Family Medical History Any Significant Family History?: No Hx Cancer: Grandparents Hx Depression: Mother Hx Diabetes: Mother Hx Heart Disease: Mother Hx HTN: Mother Hx Kidney Disease: Mother Hx Liver Disease: Mother Hx Seizures: Brother/Sister Physical Exam - General General Appearance: Alert, Oriented x3, Cooperative, Mild distress - Head Head exam: Normal inspection - Eye Eye exam: Normal appearance, PERRL, EOMI Pupils: Normal accommodation - ENT ENT exam: Normal exam, Mucous membranes moist, Normal external ear exam, Normal orophraynx Ear exam: Normal external inspection. negative: External canal tenderness Nasal Exam: Normal inspection. negative: Discharge, Sinus tenderness Mouth exam: Normal external inspection, Tongue normal Teeth exam: Normal inspection. negative: Dental caries Throat exam: Normal inspection. negative: Tonsillar erythema, Tonsillar exudate - Neck Neck exam: Normal inspection, Full ROM. negative: Tenderness - Respiratory Respiratory exam: Respiratory distress, Wheezes - Cardiovascular Cardiovascular Exam: Normal rhythm, Normal heart sounds, Tachycardia - GI/Abdominal GI/Abdominal exam: Soft, Normal bowel sounds. negative: Tenderness - Rectal Rectal exam: Deferred - exam: Deferred - Extremities Extremities exam: Normal inspection, Full ROM, Normal capillary refill. negative: Tenderness - Back Back exam: Reports: Normal inspection, Full ROM. Denies: Muscle spasm, Rash noted, Tenderness - Neurological Neurological exam: Alert, CN II-XII intact, Normal gait, Oriented X3 - Psychiatric Psychiatric exam: Normal affect, Normal mood - Skin Skin exam: Dry, Intact, Normal color, Warm Course Vital Signs 02/03/18 02/03/18 02/03/18 11:31 12:56 13:00 Temperature 98.0 F Pulse Rate 106 H 91 H Pulse Rate [ 86 Pulse Ox Probe] Respiratory 18 20 16 Rate Blood Pressure 107/74 Blood Pressure 152/84 [Left Arm] Pulse Ox 97 99 97 02/03/18 02/03/18 13:30 14:00 Temperature Pulse Rate Pulse Rate [ 83 85 Pulse Ox Probe] Respiratory 16 16 Rate Blood Pressure Blood Pressure 146/93 148/93 [Left Arm] Pulse Ox 97 97 - Reevaluation(s) Reevaluation #1: 02/03/18 14:36 pt is doing better Medical Decision Making - Lab Data Result diagrams: 02/03/18 12:11 02/03/18 12:11 Lab Results 02/03/18 02/03/18 02/03/18 Range/Units 12:00 12:11 12:11 WBC 7.4 (4.2-12.2) K/uL RBC 4.12 L (4.40-5.70) M/uL Hgb 12.2 L (14.0-18.0) gm/dl Hct 37.3 L (42.0-52.0) % MCV 90.5 (81-97) fl MCH 29.6 (27-33) pg MCHC 32.7 (32-36) g/dl RDW 13.6 (11.5-14.5) % Plt Count 245 (130-400) K/uL MPV 9.9 (7.4-10.4) fl Neutrophils % 59.0 (47-80) % Band Neutrophils % 1.0 (0-5) % Eosinophils % Not Reportable Basophils % Not Reportable Lymphocytes 31.0 (16-45) % Monocytes 8.0 (0-9) % Basophils 0.0 (0-6) % Eosinophil Count 1.0 (0-6) % D-Dimer 0.28 (0-0.59) mg/L FEU Sodium (136-145) mmol/L Potassium (3.4-4.5) mmol/L Chloride (98-107) mmol/L Carbon Dioxide (22-29) mmol/L Anion Gap (7-16) BUN (6-20) mg/dL Creatinine (0.7-1.2) mg/dL Estimated GFR mL/min Random Glucose (74-109) mg/dL Calcium (8.6-10.0) mg/dL Total Bilirubin (0.2-1.0) mg/dL AST (10.0-50.0) U/L ALT (<41) U/L Alkaline Phosphatase (40-129) U/L Troponin T Cancelled NT-Pro-B Natriuret Pep (<125) pg/mL Total Protein (6.6-8.7) g/dL Albumin (4.0-5.0) g/dL Globulin (1.4-4.8) gm/dL Albumin/Globulin Ratio (1.1-1.8) 02/03/18 Range/Units 12:11 WBC (4.2-12.2) K/uL RBC (4.40-5.70) M/uL Hgb (14.0-18.0) gm/dl Hct (42.0-52.0) % MCV (81-97) fl MCH (27-33) pg MCHC (32-36) g/dl RDW (11.5-14.5) % Plt Count (130-400) K/uL MPV (7.4-10.4) fl Neutrophils % (47-80) % Band Neutrophils % (0-5) % Eosinophils % Basophils % Lymphocytes (16-45) % Monocytes (0-9) % Basophils (0-6) % Eosinophil Count (0-6) % D-Dimer (0-0.59) mg/L FEU Sodium 142 (136-145) mmol/L Potassium 3.6 (3.4-4.5) mmol/L Chloride 99 (98-107) mmol/L Carbon Dioxide 28.0 (22-29) mmol/L Anion Gap 15.0 (7-16) BUN 4 L (6-20) mg/dL Creatinine 0.6 L (0.7-1.2) mg/dL Estimated GFR > 60 mL/min Random Glucose 192 H (74-109) mg/dL Calcium 8.9 (8.6-10.0) mg/dL Total Bilirubin 0.30 (0.2-1.0) mg/dL AST 30 (10.0-50.0) U/L ALT 43 H (<41) U/L Alkaline Phosphatase 70 (40-129) U/L Troponin T < 0.010 NT-Pro-B Natriuret Pep 32.39 (<125) pg/mL Total Protein 7.1 (6.6-8.7) g/dL Albumin 4.0 (4.0-5.0) g/dL Globulin 3.1 (1.4-4.8) gm/dL Albumin/Globulin Ratio 1.3 (1.1-1.8) Disposition Disposition: Discharge Clinical Impression: Viral syndrome Disposition: Home, Self-Care Condition: (1) Good Instructions: Viral Syndrome (ED) Additional Instructions: follow up with family doctor. return sooner if worse. Quality - Quality Measures Quality Measures: N/A - Blood Pressure Screening Does Patient Have Any of the Following: No Blood Pressure Classification: Normal BP Reading Systolic Measurement: 107 Diastolic Measurement: 74 Screening for High Blood Pressure: < Normal BP, F/U Not Required > [G8783]
--- NOTE | 2018-02-06 07:53 | RADIOLOGY REPORT ---
EXAM: CHEST, TWO VIEWS HISTORY: COUGH, SHORTNESS OF BREATH. TECHNIQUE: PA and lateral views of the chest were obtained. Comparison: Two view chest 02/08/15. FINDINGS: Stable cardiomegaly. No definite acute infiltrate is seen and no pleural effusion or pneumothorax evident. 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 IMPRESSION: STABLE MILD CARDIOMEGALY. NO ACUTE INFILTRATE IDENTIFIED. [facility]BER: [id number] [facility]
== END 2018-02-03 14:48 | disposition home or self-care (01) ==
LOC: ER 11:30
DX: B34.9 Viral infection, unspecified (principal); R06.02 Shortness of breath; R05 Cough; E11.9 Type 2 diabetes mellitus without complications; F17.210 Nicotine dependence, cigarettes, uncomplicated; I50.9 Heart failure, unspecified; Z79.84 Long term (current) use of oral hypoglycemic drugs
CPT/HCPCS: 71046; 80053; 83880; 84484; 85027; 85379; 93005; 93010; 94640; 99284

== ENCOUNTER 2018-02-19 00:58 | Emergency (ER) | payer MEDICARE, MEDICAID ==
[2018-02-19 01:28] LABS: BASO % 0.2 % (0-6); EOS % 1.8 % (0-6); GRAN % 58.7 % (47-80); HEMATOCRIT 38.4 % (42.0-52.0); HEMOGLOBIN 12.2 gm/dl (14.0-18.0); LYMPH % 30.9 % (16-45); MEAN CELL VOLUME 91.6 fl (81-97); MEAN CORPUSCULAR HEMOGLOBIN 29.1 pg (27-33); MEAN CORPUSCULAR HGB CONC 31.8 g/dl (32-36); MEAN PLATELET VOLUME 10.2 fl (7.4-10.4); MONO % 8.4 % (0-9); PLATELET COUNT 254 K/uL (130-400); RED BLOOD COUNT 4.19 M/uL (4.40-5.70); RED CELL DISTRIBUTION WIDTH 13.4 % (11.5-14.5); WHITE BLOOD COUNT W/O DIFF 10.6 K/uL (4.2-12.2)
--- NOTE | 2018-02-19 01:36 | Emergency Department Record ---
History of Present Illness - General Chief complaint: Hypergylcemia Stated complaint: HIGH SUGAR/DIZZY Time Seen by Provider: 02/19/18 01:12 Source: Patient Mode of Arrival: Ambulatory Limitations: No limitations - History of Present Illness Initial comments: pt came in because he was feeling dizzy. his bs was 251 at home Onset/Timin -: Minutes(s) Context: History of similar Associated Symptoms: Confusion, Nausea/vomiting - Rachelle Coma Scale Eye Response: (4) Open spontaneously Motor Response: (6) Obeys commands Verbal Response: (5) Oriented [place] Total: 15 - Symptoms of Stroke Symptoms of stroke: Dizziness - Related Data Allergies Allergy/AdvReac Type Severity Reaction Status Date / Time NSAIDS (Non-Steroidal AdvReac Instructed Verified 02/03/18 11:43 Anti-Inflamma to avoid Travel Screening - Travel/Exposure Within Last 30 Days Have you traveled within the last 30 days?: No - Travel Symptoms Symptom Screening: Diarrhea, Vomiting Review of Systems Reviewed: No additional complaints except as noted below Constitutional: Reports: As per HPI. Denies: Chills, Fever, Malaise, Night sweats, Weakness, Weight change Eyes: Reports: As per HPI. Denies: Eye discharge, Eye pain, Photophobia, Vision change ENT: Reports: As per HPI. Denies: Congestion, Dental pain, Ear pain, Epistaxis , Hearing loss, Throat pain Respiratory: Reports: As per HPI. Denies: Cough, Dyspnea, Hemoptysis, Stridor, Wheezes Cardiovascular: Reports: As per HPI. Denies: Arrhythmia, Chest pain, Dyspnea on exertion, Edema, Murmurs, Orthopnea, Palpitations, Paroxysmal nocturnal dyspnea, Rheumatic Fever, Syncope Endocrine: Reports: As per HPI. Denies: Fatigue, Heat or cold intolerance, Polydipsia, Polyuria Gastrointestinal: Reports: As per HPI. Denies: Abdominal pain, Constipation, Diarrhea, Hematemesis, Hematochezia, Melena, Nausea, Vomiting Genitourinary: Reports: As per HPI. Denies: Dysuria, Frequency, Hematuria, Incontinence, Retention, Testicular pain, Testicular mass, Urgency Musculoskeletal: Reports: As per HPI. Denies: Arthralgia, Back pain, Gout, Joint swelling, Myalgia, Neck pain Skin: Reports: As per HPI. Denies: Bruising, Change in color, Change in hair/ nails, Lesions, Pruritus, Rash Neurological: Reports: As per HPI. Denies: Abnormal gait, Confusion, Headache, Numbness, Paresthesias, Seizure, Tingling, Tremors, Vertigo, Weakness Psychiatric: Reports: As per HPI. Denies: Anxiety, Auditory hallucinations, Depression, Homicidal thoughts, Suicidal thoughts, Visual hallucinations Hematological/Lymphatic: Reports: As per HPI. Denies: Anemia, Blood Clots, Easy bleeding, Easy bruising, Swollen glands Past Medical History - SOCIAL HISTORY Smoking Status: Former smoker Alcohol Use: None Drug Use: None - RESPIRATORY Hx Respiratory Disorders: Yes Hx Bronchitis: Yes Hx Sleep Apnea: Yes Hx of CPAP: Yes - CARDIOVASCULAR Hx Cardio Disorders: Yes Hx Cardiac Cath: Yes (06/2014 No CAD) Hx Chest Pain: Yes Hx CHF: Yes Hx Edema: Yes Hx Heart Attack: No Hx Irregular Heartbeat: Yes Hx Coronary Artery Disease: No Hx Coronary Artery Bypass Graft: No Hx Coronary Stent: No Comment:: mitral valve prolapse, stress test last spring - NEURO Hx Neuro Disorders: Yes Hx TIA: Yes (x2 ) - GI Hx GI Disorders: Yes Hx Crohn's Disease: Yes Hx Reflux: Yes Hx Rectal Bleeding: Yes Hx Wt Loss/Wt Gain: Yes Hx of Polyps: Yes Comment:: gain 40# in 1 year - Hx Genitourinary Disorders: No - ENDOCRINE Hx Endocrine Disorders: Yes Hx Diabetes: Yes Hx Thyroid Disease: No - MUSCULOSKELETAL Hx Musculoskeletal Disorders: Yes Hx Arthritis: Yes - PSYCH Hx Psych Problems: Yes Hx Anxiety: Yes Hx Depression: Yes Hx Suicide Attempt: Yes (16 years ago) - HEMATOLOGY/ONCOLOGY Hx Hematology/Oncology Disorders: No Family Medical History Any Significant Family History?: Yes Hx Cancer: Grandparents Hx Depression: Mother Hx Diabetes: Mother Hx Heart Disease: Mother Hx HTN: Mother Hx Kidney Disease: Mother Hx Liver Disease: Mother Hx Seizures: Brother/Sister Physical Exam - General General Appearance: Alert, Oriented x3, Cooperative, Mild distress - Head Head exam: Normal inspection - Eye Eye exam: Normal appearance, PERRL, EOMI Pupils: Normal accommodation - ENT ENT exam: Normal exam, Mucous membranes moist, Normal external ear exam, Normal orophraynx Ear exam: Normal external inspection. negative: External canal tenderness Nasal Exam: Normal inspection. negative: Discharge, Sinus tenderness Mouth exam: Normal external inspection, Tongue normal Teeth exam: Normal inspection. negative: Dental caries Throat exam: Normal inspection. negative: Tonsillar erythema, Tonsillar exudate - Neck Neck exam: Normal inspection, Full ROM. negative: Tenderness - Respiratory Respiratory exam: Normal lung sounds bilaterally. negative: Respiratory distress - Cardiovascular Cardiovascular Exam: Regular rate, Normal rhythm, Normal heart sounds - GI/Abdominal GI/Abdominal exam: Soft, Normal bowel sounds. negative: Tenderness - Rectal Rectal exam: Deferred - exam: Deferred - Extremities Extremities exam: Normal inspection, Full ROM, Normal capillary refill. negative: Tenderness - Back Back exam: Reports: Normal inspection, Full ROM. Denies: Muscle spasm, Rash noted, Tenderness - Neurological Neurological exam: Alert, CN II-XII intact, Normal gait, Oriented X3 - Psychiatric Psychiatric exam: Normal affect, Normal mood - Skin Skin exam: Dry, Intact, Normal color, Warm Course Vital Signs 02/19/18 01:02 Temperature 98.3 F Pulse Rate 91 H Respiratory 18 Rate Blood Pressure 132/74 Pulse Ox 98 - Reevaluation(s) Reevaluation #1: 02/19/18 02:20 pt feels better Medical Decision Making - Lab Data Result diagrams: 02/19/18 01:10 02/19/18 01:10 Lab Results 02/19/18 02/19/18 Range/Units 01:10 01:18 WBC 10.6 (4.2-12.2) K/uL RBC 4.19 L (4.40-5.70) M/uL Hgb 12.2 L (14.0-18.0) gm/dl Hct 38.4 L (42.0-52.0) % MCV 91.6 (81-97) fl MCH 29.1 (27-33) pg MCHC 31.8 L (32-36) g/dl RDW 13.4 (11.5-14.5) % Plt Count 254 (130-400) K/uL MPV 10.2 (7.4-10.4) fl Gran % 58.7 (47-80) % Lymphocytes % 30.9 (16-45) % Monocytes % 8.4 (0-9) % Eosinophils % 1.8 (0-6) % Basophils % 0.2 (0-6) % POC Glucose 188 H (70-110) mg/dL Disposition Disposition: Discharge Clinical Impression: Dizziness Disposition: Home, Self-Care Condition: (1) Good Instructions: Dizziness (ED) Additional Instructions: follow up with family doctor. return sooner if worse. rest Forms: Patient Portal Access Quality - Quality Measures Quality Measures: N/A - Blood Pressure Screening Does Patient Have Any of the Following: No Blood Pressure Classification: Pre-Hypertensive BP Reading Systolic Measurement: 132 Diastolic Measurement: 74 Screening for High Blood Pressure: < Pre-Hypertensive BP, F/U Documented > [ G8950] Pre-Hypertensive Follow-up Interventions: Follow-up with rescreen every year.
[2018-02-19 01:37] LABS: BLOOD UREA NITROGEN 5 mg/dL (6-20); CREATININE 0.6 mg/dL (0.7-1.2); EST GLOMERULAR FILTRATION RATE > 60 mL/min
[2018-02-19 01:40] LABS: GLUCOSE,RANDOM 193 mg/dL (74-109)
[2018-02-19 01:50] LABS: URINE APPEARANCE CLEAR; URINE BILIRUBIN NEGATIVE (NEGATIVE); URINE BLOOD NEGATIVE (NEGATIVE); URINE COLOR YELLOW; URINE GLUCOSE (UA) NEGATIVE (NEGATIVE); URINE KETONE NEGATIVE (NEGATIVE); URINE LEUKOCYTE ESTERASE NEGATIVE (NEGATIVE); URINE NITRITE NEGATIVE (NEGATIVE); URINE PROTEIN NEGATIVE (NEGATIVE); URINE UROBILINOGEN 0.2 E.U./dL (0.20 - 1.00)
[2018-02-19] MEDS ORDERED: MECLIZINE 25 MG TABLET PO ONE (02:17)
--- NOTE | 2018-02-22 10:51 | CT SCAN REPORT ---
EXAM: HEAD CT HISTORY: DIZZINESS. HIGH BLOOD SUGAR. TECHNIQUE: Noncontrast CT of the brain was obtained. Comparison: None. FINDINGS: The ventricles and subarachnoid spaces are unremarkable. There is no mass or mass effect. No intra or extraaxial hemorrhage seen. No fracture or acute osseous abnormality identified. No CT evidence for large acute territorial infarct. The sinuses appear clear. the orbits are unremarkable. IMPRESSION: UNREMARKABLE HEAD CT. JOB NUMBER: [id number] MTDD
== END 2018-02-19 02:33 | disposition home or self-care (01) ==
LOC: ER 00:58
DX: R42 Dizziness and giddiness (principal); R51 Headache; R11.2 Nausea with vomiting, unspecified; R41.0 Disorientation, unspecified; I50.9 Heart failure, unspecified; E11.9 Type 2 diabetes mellitus without complications; Z79.84 Long term (current) use of oral hypoglycemic drugs; Z87.891 Personal history of nicotine dependence
CPT/HCPCS: 36416; 70450; 80048; 81003; 82948; 85025; 93005; 93010; 99284

== ENCOUNTER 2018-04-02 18:46 | Emergency (ER) | payer MEDICARE, MEDICAID ==
[2018-04-02] MEDS ORDERED: ONDANSETRON 4 MG ODT TABLET SL ONE ×2 (18:59→19:50)
--- NOTE | 2018-04-02 19:07 | Emergency Department Record ---
History of Present Illness - General Chief Complaint: Abdominal Pain Stated Complaint: BOWEL MOVEMENTS GREEN/MUCUS,COUGH,GROIN PAIN Time Seen by Provider: 04/02/18 18:53 Source: Patient, Family Mode of Arrival: Ambulatory Limitations: No limitations - History of Present Illness Initial Comments: 47 yo male presents with cough, sore throat, right groin pain, green stools. The onset of the sore throat was Tuesday as well as the cough. No fever. The cough is non productive. He has chronic stool changes due to Crohn's. Blood in the stool is common due to hemorrhoids. The pain in the abdomen is over the right flank and groin that is sharp and sudden onset. No chest pain. He has been able to keep fluids done and he feels hydrated. The green stools were formed. MD Complaint: Abdominal pain, Other (Sore throat, Cough) Onset/Timin -: Days(s) Location: R Flank, RLQ Radiation: R flank Migration to: R Flank Severity: Moderate Severity scale (1-10): 6 Quality: Aching, Cramping Improves With: Rest Worsens With: Other Context: Other Associated Symptoms: Vomiting (twice), Other (Cough, sore throat) - Related Data Previous Rx's Medication Instructions Recorded Ondansetron [Zofran Odt] 4 mg PO NOW #15 tab.rapdis 04/02/18 Allergies Allergy/AdvReac Type Severity Reaction Status Date / Time NSAIDS (Non-Steroidal AdvReac Instructed Verified 04/02/18 18:59 Anti-Inflamma to avoid Travel Screening - Travel/Exposure Within Last 30 Days Have you traveled within the last 30 days?: No - Travel/Exposure Within Last Year Have you traveled outside the [place] in the last year?: No - Additonal Travel Details Have you been exposed to anyone with a communicable illness?: No - Travel Symptoms Symptom Screening: None Review of Systems Constitutional: Denies: Chills, Fever, Malaise, Weakness Eyes: Denies: Eye discharge ENT: Reports: Throat pain. Denies: Congestion Respiratory: Reports: Cough (Non productive). Denies: Dyspnea Cardiovascular: Denies: Chest pain, Syncope Endocrine: Denies: Fatigue Gastrointestinal: Reports: As per HPI, Abdominal pain, Nausea, Vomiting. Denies : Diarrhea Genitourinary: Denies: Discharge, Dysuria, Frequency, Hematuria Musculoskeletal: Denies: Arthralgia, Back pain, Neck pain Skin: Denies: Bruising, Change in color, Rash Neurological: Denies: Confusion, Headache, Numbness, Weakness Psychiatric: Denies: Anxiety Hematological/Lymphatic: Reports: Blood Clots. Denies: Easy bleeding, Easy bruising Past Medical History - SOCIAL HISTORY Smoking Status: Former smoker Alcohol Use: None Drug Use: None - RESPIRATORY Hx Respiratory Disorders: Yes Hx Bronchitis: Yes Hx Sleep Apnea: Yes Hx of CPAP: Yes - CARDIOVASCULAR Hx Cardio Disorders: Yes Hx Cardiac Cath: Yes (06/2014 No CAD) Hx Chest Pain: Yes Hx CHF: Yes Hx Edema: Yes Hx Heart Attack: No Hx Irregular Heartbeat: Yes Hx Coronary Artery Disease: No Hx Coronary Artery Bypass Graft: No Hx Coronary Stent: No Comment:: mitral valve prolapse, stress test last spring - NEURO Hx Neuro Disorders: Yes Hx TIA: Yes (x2 2006/2006) - GI Hx GI Disorders: Yes Hx Crohn's Disease: Yes Hx Reflux: Yes Hx Rectal Bleeding: Yes Hx Wt Loss/Wt Gain: Yes Hx of Polyps: Yes Comment:: gain 40# in 1 year - Hx Genitourinary Disorders: No - ENDOCRINE Hx Endocrine Disorders: Yes Hx Diabetes: Yes Hx Thyroid Disease: No - MUSCULOSKELETAL Hx Musculoskeletal Disorders: Yes Hx Arthritis: Yes - PSYCH Hx Psych Problems: Yes Hx Anxiety: Yes Hx Depression: Yes Hx Suicide Attempt: Yes (16 years ago) - HEMATOLOGY/ONCOLOGY Hx Hematology/Oncology Disorders: No Family Medical History Any Significant Family History?: No Hx Cancer: Grandparents Hx Depression: Mother Hx Diabetes: Mother Hx Heart Disease: Mother Hx HTN: Mother Hx Kidney Disease: Mother Hx Liver Disease: Mother Hx Seizures: Brother/Sister Physical Exam - General General Appearance: Alert, Oriented x3, Cooperative, No acute distress Limitations: No limitations - Head Head exam: Atraumatic, Normal inspection - Eye Eye exam: Normal appearance. negative: Conjunctival injection - ENT ENT exam: Normal exam, Mucous membranes moist Ear exam: Normal external inspection Nasal Exam: Normal inspection Mouth exam: Normal external inspection Throat exam: Normal inspection. negative: Tonsillomegaly, Tonsillar exudate, R peritonsillar mass, L peritonsillar mass - Neck Neck exam: Normal inspection - Respiratory Respiratory exam: Normal lung sounds bilaterally. negative: Respiratory distress, Rhonchi, Stridor, Wheezes - Cardiovascular Cardiovascular Exam: Regular rate, Normal rhythm, Normal heart sounds - GI/Abdominal GI/Abdominal exam: Soft. negative: Tenderness - Rectal Rectal exam: Deferred - exam: Deferred - Extremities Extremities exam: Normal inspection - Back Back exam: Denies: CVA tenderness (R), CVA tenderness (L) - Neurological Neurological exam: Alert, Oriented X3 - Psychiatric Psychiatric exam: Normal affect, Normal mood - Skin Skin exam: Dry, Intact, Normal color, Warm Course Vital Signs 04/02/18 18:55 Temperature 97.9 F Pulse Rate 92 H Respiratory 16 Rate Blood Pressure 142/84 Pulse Ox 94 L - Reevaluation(s) Reevaluation #1: 04/02/18 19:44 The vitals were reviewed No fever or tachycardia The UA is negative for infection or blood The CBC is in the normal range. The BMP is normal 04/02/18 19:[address] a CT scan performed on 03/09/18: Cholelithisis, 2mm renal stone on R, esophageal thickening, diverticulosis with diverticulitis. Given his recent CT scan with normal vitals, labs, UA. No indication for emergent CT scan tonight. I discussed the recent findings with the patient. I will have him screen his urine for a couple days looking for the 2mm renal stone. With no blood in the urine I explained this might not be a stone but if it is it is small and likely should pass on it own. We discussed reasons for immediate return to the ED. No indiction for antibiotics at this time. Medical Decision Making - Lab Data Result diagrams: 04/02/18 19:20 04/02/18 19:20 Disposition Disposition: Discharge Clinical Impression: Pharyngitis Qualifiers: Pharyngitis/tonsillitis etiology: unspecified etiology Qualified Code(s): J02.9 - Acute pharyngitis, unspecified Disposition: Home, Self-Care Condition: (1) Good Instructions: Pharyngitis (ED), Abdominal Pain (ED) Additional Instructions: Call your doctor this week for a recheck Return if you have any return of the vomiting, and diarrhea, fevers or new concerns Prescriptions: Ondansetron [Zofran Odt] 4 mg PO NOW #15 tab.rapdis Forms: Patient Portal Access Time of Disposition: 19:50 Quality - Quality Measures Quality Measures: N/A - Blood Pressure Screening Does Patient Have Any of the Following: No Blood Pressure Classification: Pre-Hypertensive BP Reading Systolic Measurement: 142 Diastolic Measurement: 84 Screening for High Blood Pressure: < Pre-Hypertensive BP, F/U Documented > [ G8950] Pre-Hypertensive Follow-up Interventions: Referral to alternative/primary care provider.
[2018-04-02 19:27] LABS: HEMATOCRIT 37.5 % (42.0-52.0); MEAN CELL VOLUME 91.2 fl (81-97); MEAN PLATELET VOLUME 9.7 fl (7.4-10.4); PLATELET COUNT 267 K/uL (130-400); RED BLOOD COUNT 4.11 M/uL (4.40-5.70); RED CELL DISTRIBUTION WIDTH 13.5 % (11.5-14.5); WHITE BLOOD COUNT W/O DIFF 11.3 K/uL (4.2-12.2)
[2018-04-02 19:28] LABS: MEAN CORPUSCULAR HEMOGLOBIN 29.1 pg (27-33)
[2018-04-02 19:36] LABS: URINE APPEARANCE CLEAR; URINE BILIRUBIN NEGATIVE (NEGATIVE); URINE BLOOD NEGATIVE (NEGATIVE); URINE COLOR YELLOW; URINE GLUCOSE (UA) NEGATIVE (NEGATIVE); URINE KETONE NEGATIVE (NEGATIVE); URINE LEUKOCYTE ESTERASE NEGATIVE (NEGATIVE); URINE NITRITE NEGATIVE (NEGATIVE); URINE PROTEIN NEGATIVE (NEGATIVE); URINE UROBILINOGEN 0.2 E.U./dL (0.20 - 1.00)
[2018-04-02 19:41] LABS: BLOOD UREA NITROGEN 10 mg/dL (6-20); CREATININE 0.6 mg/dL (0.7-1.2); EST GLOMERULAR FILTRATION RATE > 60 mL/min
[2018-04-02 19:43] LABS: GLUCOSE,RANDOM 129 mg/dL (74-109)
[2018-04-02 19:46] LABS: ALB/GLOB RATIO 1.2 (1.1-1.8); ALBUMIN 3.8 g/dL (4.0-5.0); ALKALINE PHOSPHATASE 61 U/L (40-129); ALT/SGPT 20 U/L (<41); AST/SGOT 16 U/L (10.0-50.0); LIPASE 17 U/L (13-60)
== END 2018-04-02 19:56 | disposition home or self-care (01) ==
LOC: ER 18:46
DX: J02.9 Acute pharyngitis, unspecified (principal); R10.31 Right lower quadrant pain; R05 Cough; R11.11 Vomiting without nausea; Z87.891 Personal history of nicotine dependence
CPT/HCPCS: 80053; 81003; 83690; 85027; 99283

== ENCOUNTER 2018-05-12 01:36 | Emergency (ER) | payer MEDICARE, MEDICAID ==
[2018-05-12 01:50] LABS: URINE APPEARANCE CLEAR; URINE BILIRUBIN NEGATIVE (NEGATIVE); URINE BLOOD NEGATIVE (NEGATIVE); URINE COLOR YELLOW; URINE GLUCOSE (UA) NEGATIVE (NEGATIVE); URINE KETONE NEGATIVE (NEGATIVE); URINE LEUKOCYTE ESTERASE NEGATIVE (NEGATIVE); URINE NITRITE NEGATIVE (NEGATIVE); URINE PROTEIN TRACE (NEGATIVE); URINE UROBILINOGEN 0.2 E.U./dL (0.20 - 1.00)
--- NOTE | 2018-05-12 02:06 | Emergency Department Record ---
History of Present Illness - General Chief Complaint: Back Pain/Injury Stated Complaint: BACK PAIN Time Seen by Provider: 05/12/18 01:43 Source: Patient Mode of Arrival: Ambulatory Limitations: No limitations - History of Present Illness Initial Comments: pt has known hx of herniated discs w pain and radiation down both legs. he also has numbness radiating down both legs. tonight he lost control of his bladder without realizing it and he wet himself. his dr had told him if that happens to go immediately to nearest er. MD Complaint: Back pain Onset/Timin -: Hour(s) Similar Symptoms Previously: No Place: Home Radiation: None Severity: Moderate Severity scale (1-10): 8 Quality: Sharp Consistency: Constant, Getting worse Improves With: None Worsens With: None Context: Unknown Treatments Prior to Arrival: Prescription analgesics - Related Data Previous Rx's Medication Instructions Recorded Ondansetron [Zofran Odt] 4 mg PO NOW #15 tab.rapdis 04/02/18 Allergies Allergy/AdvReac Type Severity Reaction Status Date / Time NSAIDS (Non-Steroidal AdvReac Instructed Verified 04/02/18 18:59 Anti-Inflamma to avoid Travel Screening - Travel/Exposure Within Last 30 Days Have you traveled within the last 30 days?: No Review of Systems Reviewed: No additional complaints except as noted below Constitutional: Reports: As per HPI. Denies: Chills, Fever, Malaise, Night sweats, Weakness, Weight change Eyes: Reports: As per HPI. Denies: Eye discharge, Eye pain, Photophobia, Vision change ENT: Reports: As per HPI. Denies: Congestion, Dental pain, Ear pain, Epistaxis , Hearing loss, Throat pain Respiratory: Reports: As per HPI. Denies: Cough, Dyspnea, Hemoptysis, Stridor, Wheezes Cardiovascular: Reports: As per HPI. Denies: Arrhythmia, Chest pain, Dyspnea on exertion, Edema, Murmurs, Orthopnea, Palpitations, Paroxysmal nocturnal dyspnea, Rheumatic Fever, Syncope Endocrine: Reports: As per HPI. Denies: Fatigue, Heat or cold intolerance, Polydipsia, Polyuria Gastrointestinal: Reports: As per HPI. Denies: Abdominal pain, Constipation, Diarrhea, Hematemesis, Hematochezia, Melena, Nausea, Vomiting Genitourinary: Reports: As per HPI. Denies: Dysuria, Frequency, Hematuria, Incontinence, Retention, Testicular pain, Testicular mass, Urgency Musculoskeletal: Reports: As per HPI. Denies: Arthralgia, Back pain, Gout, Joint swelling, Myalgia, Neck pain Skin: Reports: As per HPI. Denies: Bruising, Change in color, Change in hair/ nails, Lesions, Pruritus, Rash Neurological: Reports: As per HPI. Denies: Abnormal gait, Confusion, Headache, Numbness, Paresthesias, Seizure, Tingling, Tremors, Vertigo, Weakness Psychiatric: Reports: As per HPI. Denies: Anxiety, Auditory hallucinations, Depression, Homicidal thoughts, Suicidal thoughts, Visual hallucinations Hematological/Lymphatic: Reports: As per HPI. Denies: Anemia, Blood Clots, Easy bleeding, Easy bruising, Swollen glands Past Medical History - SOCIAL HISTORY Smoking Status: Former smoker Alcohol Use: None Drug Use: None - RESPIRATORY Hx Respiratory Disorders: Yes Hx Bronchitis: Yes Hx Sleep Apnea: Yes Hx of CPAP: Yes - CARDIOVASCULAR Hx Cardio Disorders: Yes Hx Cardiac Cath: Yes (06/2014 No CAD) Hx Chest Pain: Yes Hx CHF: Yes Hx Edema: Yes Hx Heart Attack: No Hx Irregular Heartbeat: Yes Hx Coronary Artery Disease: No Hx Coronary Artery Bypass Graft: No Hx Coronary Stent: No Comment:: mitral valve prolapse, stress test last spring - NEURO Hx Neuro Disorders: Yes Hx TIA: Yes (x2 ) - GI Hx GI Disorders: Yes Hx Crohn's Disease: Yes Hx Reflux: Yes Hx Rectal Bleeding: Yes Hx Wt Loss/Wt Gain: Yes Hx of Polyps: Yes Comment:: gain 40# in 1 year - Hx Genitourinary Disorders: No - ENDOCRINE Hx Endocrine Disorders: Yes Hx Diabetes: Yes Hx Thyroid Disease: No - MUSCULOSKELETAL Hx Musculoskeletal Disorders: Yes Hx Arthritis: Yes - PSYCH Hx Psych Problems: Yes Hx Anxiety: Yes Hx Depression: Yes Hx Suicide Attempt: Yes (16 years ago) - HEMATOLOGY/ONCOLOGY Hx Hematology/Oncology Disorders: No Family Medical History Any Significant Family History?: Yes Hx Cancer: Grandparents Hx Depression: Mother Hx Diabetes: Mother Hx Heart Disease: Mother Hx HTN: Mother Hx Kidney Disease: Mother Hx Liver Disease: Mother Hx Seizures: Brother/Sister Physical Exam - General General Appearance: Alert, Oriented x3, Cooperative, Mild distress - Head Head exam: Normal inspection - Eye Eye exam: Normal appearance, PERRL, EOMI Pupils: Normal accommodation - ENT ENT exam: Normal exam, Mucous membranes moist, Normal external ear exam, Normal orophraynx Ear exam: Normal external inspection. negative: External canal tenderness Nasal Exam: Normal inspection. negative: Discharge, Sinus tenderness Mouth exam: Normal external inspection, Tongue normal Teeth exam: Normal inspection. negative: Dental caries Throat exam: Normal inspection. negative: Tonsillar erythema, Tonsillar exudate - Neck Neck exam: Normal inspection, Full ROM. negative: Tenderness - Respiratory Respiratory exam: Normal lung sounds bilaterally. negative: Respiratory distress - Cardiovascular Cardiovascular Exam: Regular rate, Normal rhythm, Normal heart sounds - GI/Abdominal GI/Abdominal exam: Soft, Normal bowel sounds. negative: Tenderness - Rectal Rectal exam: Other (good rectal tone). negative: Decreased rectal tone - exam: Deferred - Extremities Extremities exam: Normal inspection, Full ROM, Normal capillary refill. negative: Tenderness - Back Back exam: Reports: Normal inspection, Full ROM. Denies: Muscle spasm, Rash noted, Tenderness - Neurological Neurological exam: Alert, CN II-XII intact, Normal gait, Oriented X3 - Psychiatric Psychiatric exam: Normal affect, Normal mood - Skin Skin exam: Dry, Intact, Normal color, Warm Course Vital Signs 05/12/18 01:37 Temperature 97.8 F Pulse Rate 85 Respiratory 24 Rate Blood Pressure 119/75 Pulse Ox 95 Medical Decision Making - Lab Data Lab Results 05/12/18 Range/Units 01:50 Urine Color Yellow Urine Appearance Clear Urine pH 6.0 (5.0-8.0) Ur Specific [place] 1.025 (1.002-1.030) Urine Protein Trace H (NEGATIVE) Urine Glucose (UA) Negative (NEGATIVE) Urine Ketones Negative (NEGATIVE) Urine Blood Negative (NEGATIVE) Urine Nitrite Negative (NEGATIVE) Urine Bilirubin Negative (NEGATIVE) Urine Urobilinogen 0.2 (0.20 - 1.00) E.U./dL Ur Leukocyte Esterase Negative (NEGATIVE) Disposition Disposition: Transfer Clinical Impression: Radiculopathy Qualifiers: Spinal region: lumbosacral Qualified Code(s): M54.17 - Radiculopathy, lumbosacral region Incontinence Qualifiers: Incontinence type: urinary Urinary Incontinence type: urinary incontinence without sensory awareness Qualified Code(s): N39.42 - Incontinence without sensory awareness Disposition: Acute Care Hospital Transfer Transfer To: [facility] Reason For Transfer: needs emergent mri Accepting Physician: nato Time Discussed w/Accepting Physician: 02:09 Quality - Quality Measures Quality Measures: N/A - Blood Pressure Screening Does Patient Have Any of the Following: No Blood Pressure Classification: Normal BP Reading Systolic Measurement: 119 Diastolic Measurement: 75 Screening for High Blood Pressure: < Normal BP, F/U Not Required > [G8783]
== END 2018-05-12 02:21 | disposition short-term general hospital (02) ==
LOC: ER 01:36
DX: M51.16 Intervertebral disc disorders with radiculopathy, lumbar region (principal); N39.42 Incontinence without sensory awareness; I50.9 Heart failure, unspecified; E11.9 Type 2 diabetes mellitus without complications; Z87.891 Personal history of nicotine dependence
CPT/HCPCS: 81003; 99283

== ENCOUNTER 2018-07-01 14:04 | Emergency (ER) | payer MEDICAID, MEDICARE ==
--- NOTE | 2018-07-01 14:09 | Emergency Department Record ---
History of Present Illness - General Chief Complaint: Abdominal Pain Stated Complaint: LT SIDE ABD PAIN Time Seen by Provider: 07/01/18 14:07 Source: Patient Mode of Arrival: Ambulatory Limitations: No limitations - History of Present Illness Initial Comments: 47 yo male presents recurrent sudden onset left side pain. The first episode occurred last nights. It was sharp and lasted 30 minutes then resolved. The pain returned at 11am with again sudden onset sharp left abdominal pain. No fever. No vomiting. He has chronic but stable diarrhea from Crohn's. No blood in the stool or urine. No rash. No injuries. No cough, chest pain or shortness of breath. MD Complaint: Abdominal pain -: Hour(s) Location: L Flank Radiation: L flank Migration to: L Flank Severity: Severe Quality: Aching, Sharp Improves With: Nothing Worsens With: Eating (Pizza) Context: Other Associated Symptoms: Anorexia - Related Data Home Medications Medication Instructions Recorded Confirmed Last Taken Adalimumab [Humira Pen] 40 mg IM WEEKLY 07/01/18 07/01/18 06/17/18 Lisinopril 2.5 mg PO DAILY 07/01/18 07/01/18 07/01/18 Spironolactone 25 mg PO DAILY 07/01/18 07/01/18 07/01/18 Previous Rx's Medication Instructions Recorded Ondansetron [Zofran Odt] 4 mg PO NOW #15 tab.rapdis 04/02/18 Cephalexin [Keflex] 500 mg PO TID #21 cap 07/01/18 Allergies Allergy/AdvReac Type Severity Reaction Status Date / Time NSAIDS (Non-Steroidal AdvReac Instructed Verified 04/02/18 18:59 Anti-Inflamma to avoid Review of Systems Constitutional: Denies: Chills, Fever, Malaise, Weakness Eyes: Denies: Eye discharge ENT: Denies: Congestion, Throat pain Respiratory: Denies: Cough, Dyspnea Cardiovascular: Denies: Chest pain, Palpitations, Syncope Endocrine: Denies: Fatigue Gastrointestinal: Reports: Abdominal pain, Diarrhea (chronic), Nausea. Denies: Vomiting Genitourinary: Denies: Dysuria, Frequency, Hematuria Musculoskeletal: Denies: Arthralgia, Back pain, Myalgia Skin: Denies: Bruising, Change in color, Rash Neurological: Denies: Headache Psychiatric: Denies: Anxiety Hematological/Lymphatic: Denies: Easy bleeding, Easy bruising, Swollen glands Past Medical History - SOCIAL HISTORY Smoking Status: Former smoker Drug Use: None - RESPIRATORY Hx Respiratory Disorders: Yes Hx Bronchitis: Yes Hx Sleep Apnea: Yes Hx of CPAP: Yes - CARDIOVASCULAR Hx Cardio Disorders: Yes Hx Cardiac Cath: Yes (06/2014 No CAD) Hx Chest Pain: Yes Hx CHF: Yes Hx Edema: Yes Hx Heart Attack: No Hx Irregular Heartbeat: Yes Hx Coronary Artery Disease: No Hx Coronary Artery Bypass Graft: No Hx Coronary Stent: No Comment:: mitral valve prolapse, stress test last spring - NEURO Hx Neuro Disorders: Yes Hx TIA: Yes (x2 ) - GI Hx GI Disorders: Yes Hx Crohn's Disease: Yes Hx Reflux: Yes Hx Rectal Bleeding: Yes Hx Wt Loss/Wt Gain: Yes Hx of Polyps: Yes Comment:: gain 40# in 1 year - Hx Genitourinary Disorders: No - ENDOCRINE Hx Endocrine Disorders: Yes Hx Diabetes: Yes Hx Thyroid Disease: No - MUSCULOSKELETAL Hx Musculoskeletal Disorders: Yes Hx Arthritis: Yes - PSYCH Hx Psych Problems: Yes Hx Anxiety: Yes Hx Depression: Yes Hx Suicide Attempt: Yes (16 years ago) - HEMATOLOGY/ONCOLOGY Hx Hematology/Oncology Disorders: No Family Medical History Hx Cancer: Grandparents Hx Depression: Mother Hx Diabetes: Mother Hx Heart Disease: Mother Hx HTN: Mother Hx Kidney Disease: Mother Hx Liver Disease: Mother Hx Seizures: Brother/Sister Physical Exam - General General Appearance: Alert, Oriented x3, Cooperative, No acute distress Limitations: No limitations - Head Head exam: Atraumatic, Normal inspection - Eye Eye exam: Normal appearance, PERRL. negative: Conjunctival injection, Scleral icterus - ENT ENT exam: Normal exam Ear exam: Normal external inspection Nasal Exam: Normal inspection Mouth exam: Normal external inspection - Neck Neck exam: Normal inspection - Respiratory Respiratory exam: Normal lung sounds bilaterally. negative: Respiratory distress - Cardiovascular Cardiovascular Exam: Regular rate, Normal rhythm, Normal heart sounds - GI/Abdominal GI/Abdominal exam: Soft, Tenderness (left flank, side otherwise soft and not tender, no rash). negative: Distended, Guarding - Rectal Rectal exam: Deferred - exam: Deferred - Extremities Extremities exam: Normal inspection - Back Back exam: Reports: Normal inspection, CVA tenderness (L), Tenderness. Denies: CVA tenderness (R) - Neurological Neurological exam: Alert, Oriented X3 - Psychiatric Psychiatric exam: Normal affect, Normal mood - Skin Skin exam: Dry, Intact, Normal color, Warm Course - Reevaluation(s) Reevaluation #1: 07/01/18 15:10 No acute abnormalities on the CBC,CMP 07/01/18 15:41 No acute process on the CT, thickened bladder wall as noted on prior CT. 07/01/18 15:57 The UA wsa N - and LE - but it did have bacteria and a few WBC with few RBC. Given his thickened bladder on CT I recommend culture the urine and treat. He is to follow up the CT findings with his PCP as well. Medical Decision Making - Lab Data Result diagrams: 07/01/18 14:35 07/01/18 14:35 Disposition Disposition: Discharge Clinical Impression: Left flank pain, Urinary tract infection Disposition: Home, Self-Care Condition: (1) Good Instructions: Abdominal Pain (ED), Urinary Tract Infection in Men (ED) Additional Instructions: Call your doctor for the next available follow up appointment Return to the ER for a recheck if worse, any new concerns or questions Take the prescriptions provided as directed Review this ER visit and the tests performed with your family doctor You may need a urology referral by your family doctor given your thickened bladder on today's CT scan and on a prior CT scan Your urine has been cultured and with result in 2-3 days Prescriptions: Cephalexin [Keflex] 500 mg PO TID #21 cap Forms: Patient Portal Access Time of Disposition: 15:59 Quality - Quality Measures Quality Measures: N/A - Blood Pressure Screening Does Patient Have Any of the Following: Active Dx of HTN Blood Pressure Classification: Normal BP Reading Systolic Measurement: 119 Diastolic Measurement: 69 Screening for High Blood Pressure: Patient Exclusion, Hx of HTN [G9744]
[2018-07-01] MEDS ORDERED: ACETAMINOPHEN 1,000 MG/100 ML BTL IVPB ONE (14:14)
[2018-07-01 14:45] LABS: HEMATOCRIT 43.3 % (42.0-52.0); HEMOGLOBIN 14.1 gm/dl (14.0-18.0); MEAN CELL VOLUME 88.4 fl (81-97); MEAN CORPUSCULAR HEMOGLOBIN 28.8 pg (27-33); MEAN CORPUSCULAR HGB CONC 32.6 g/dl (32-36); MEAN PLATELET VOLUME 9.8 fl (7.4-10.4); PLATELET COUNT 281 K/uL (130-400); RED CELL DISTRIBUTION WIDTH 14.3 % (11.5-14.5); WHITE BLOOD COUNT W/O DIFF 11.3 K/uL (4.2-12.2)
[2018-07-01 14:56] LABS: BLOOD UREA NITROGEN 7 mg/dL (6-20); CREATININE 0.6 mg/dL (0.7-1.2); EST GLOMERULAR FILTRATION RATE > 60 mL/min
[2018-07-01 14:57] LABS: LIPASE 17 U/L (13-60); TOTAL PROTEIN 7.8 g/dL (6.6-8.7)
[2018-07-01 14:59] LABS: GLUCOSE,RANDOM 165 mg/dL (74-109)
[2018-07-01 15:01] LABS: ALB/GLOB RATIO 1.1 (1.1-1.8); ALKALINE PHOSPHATASE 70 U/L (55-149); ALT/SGPT 23 U/L (<41); AST/SGOT 21 U/L (10.0-50.0)
[2018-07-01 15:44] LABS: URINE APPEARANCE CLEAR; URINE BILIRUBIN NEGATIVE (NEGATIVE); URINE BLOOD TRACE-I (NEGATIVE); URINE COLOR YELLOW; URINE GLUCOSE (UA) NEGATIVE (NEGATIVE); URINE KETONE NEGATIVE (NEGATIVE); URINE LEUKOCYTE ESTERASE NEGATIVE (NEGATIVE); URINE NITRITE NEGATIVE (NEGATIVE); URINE PROTEIN TRACE (NEGATIVE); URINE UROBILINOGEN 0.2 E.U./dL (0.20 - 1.00)
[2018-07-01 15:51] LABS: URINE BACTERIA 1+; URINE MUCUS 2+; URINE SQUAMOUS EPITHELIAL CELL 0 - 2 /hpf
[2018-07-01] MEDS ORDERED: CEPHALEXIN 500 MG CAPSULE PO STA (15:56)
--- NOTE | 2018-07-03 09:28 | CT SCAN REPORT ---
EXAM: NONCONTRAST CT OF THE ABDOMEN AND PELVIS HISTORY: LEFT FLANK PAIN, PRIOR CHOLECYSTECTOMY. TECHNIQUE: Noncontrast CT of the abdomen and pelvis was obtained. Comparison: CT of the abdomen and pelvis 01/14/18. FINDINGS: The lung bases are clear. Low hepatic parenchymal attenuation suggesting steatosis. The gallbladder is surgically absent. Unremarkable noncontrast CT appearance of the spleen, adrenal glands, and pancreas. No hydronephrosis. No intrarenal calculi. No intraureteral calculi are seen. Mild circumferentially thickened appearance of the urinary bladder hunter. The abdominal aorta has normal course and caliber. No focal colonic thickening or inflammatory change. Normal appendix. The stomach and small bowel are nondilated. No free air or free fluid in the abdomen or pelvis. Penile prosthesis with reservoir in the right lower quadrant. Small 4 mm radiodensity along the lateral wall of the inferior vena cava near the liver, similar in appearance from prior. No acute osseous findings. IMPRESSION: 1. NO EVIDENCE OF UROLITHIASIS OR OBSTRUCTIVE UROPATHY. 2. MILDLY THICKENED APPEARANCE OF THE URINARY BLADDER, SIMILAR FROM PRIOR EXAMINATION. APPEARANCE COULD BE RELATED TO CHRONIC CYSTITIS OR CHRONIC BLADDER OUTLET OBSTRUCTION. 3. HEPATIC STEATOSIS. JOB NUMBER: [id number] [facility] [address] [facility]
== END 2018-07-01 16:16 | disposition home or self-care (01) ==
LOC: ER 14:04
DX: N39.0 Urinary tract infection, site not specified (principal); R10.32 Left lower quadrant pain; I50.9 Heart failure, unspecified; I34.1 Nonrheumatic mitral (valve) prolapse; I10 Essential (primary) hypertension; Z87.891 Personal history of nicotine dependence
CPT/HCPCS: 74176; 80053; 81001; 83690; 85027; 96365; 99284

== ENCOUNTER 2018-07-03 12:44 | Emergency (ER) | payer MEDICARE ==
[2018-07-03] MEDS ORDERED: KETOROLAC 30 MG/ML VIAL IVP ONE (13:08)
--- NOTE | 2018-07-03 13:10 | Emergency Department Record ---
History of Present Illness - General Chief complaint: Male Urogenital Problem Stated complaint: SCROTUM/LT ABDOMINAL PAIN Time Seen by Provider: 07/03/18 13:00 Source: Patient, RN notes reviewed Mode of Arrival: Ambulatory - History of Present Illness Initial comments: left scrotum pain much worse at 10:00 am today but has been on and off since . Patient has a penile implant Location: Left inguinal region, Left testicle Radiation: LLQ Severity scale (1-10): 9 Quality: Other Reports: Denies other symptoms - Related Data Previous Rx's Medication Instructions Recorded Ondansetron [Zofran Odt] 4 mg PO NOW #15 tab.rapdis 04/02/18 Cephalexin [Keflex] 500 mg PO TID #21 cap 07/01/18 Allergies Allergy/AdvReac Type Severity Reaction Status Date / Time NSAIDS (Non-Steroidal AdvReac Instructed Verified 07/03/18 13:00 Anti-Inflamma to avoid Travel Screening - Travel/Exposure Within Last 30 Days Have you traveled within the last 30 days?: No Review of Systems Reviewed: No additional complaints except as noted below Constitutional: Reports: As per HPI. Denies: Chills, Fever, Malaise, Night sweats, Weakness, Weight change Eyes: Reports: As per HPI. Denies: Eye discharge, Eye pain, Photophobia, Vision change ENT: Reports: As per HPI. Denies: Congestion, Dental pain, Ear pain, Epistaxis , Hearing loss, Throat pain Respiratory: Reports: As per HPI. Denies: Cough, Dyspnea, Hemoptysis, Stridor, Wheezes Cardiovascular: Reports: As per HPI. Denies: Arrhythmia, Chest pain, Dyspnea on exertion, Edema, Murmurs, Orthopnea, Palpitations, Paroxysmal nocturnal dyspnea, Rheumatic Fever, Syncope Endocrine: Reports: As per HPI. Denies: Fatigue, Heat or cold intolerance, Polydipsia, Polyuria Gastrointestinal: Reports: As per HPI. Denies: Abdominal pain, Constipation, Diarrhea, Hematemesis, Hematochezia, Melena, Nausea, Vomiting Genitourinary: Reports: As per HPI, Other (left scrotum pain and testicle painful to palpation but difficult to tell alignment). Denies: Dysuria, Frequency, Hematuria, Incontinence, Retention, Testicular pain, Testicular mass , Urgency Musculoskeletal: Reports: As per HPI. Denies: Arthralgia, Back pain, Gout, Joint swelling, Myalgia, Neck pain Skin: Reports: As per HPI. Denies: Bruising, Change in color, Change in hair/ nails, Lesions, Pruritus, Rash Neurological: Reports: As per HPI. Denies: Abnormal gait, Confusion, Headache, Numbness, Paresthesias, Seizure, Tingling, Tremors, Vertigo, Weakness Psychiatric: Reports: As per HPI. Denies: Anxiety, Auditory hallucinations, Depression, Homicidal thoughts, Suicidal thoughts, Visual hallucinations Hematological/Lymphatic: Reports: As per HPI. Denies: Anemia, Blood Clots, Easy bleeding, Easy bruising, Swollen glands Past Medical History - SOCIAL HISTORY Smoking Status: Former smoker Alcohol Use: None Drug Use: None - RESPIRATORY Hx Respiratory Disorders: Yes Hx Bronchitis: Yes Hx Sleep Apnea: Yes Hx of CPAP: Yes - CARDIOVASCULAR Hx Cardio Disorders: Yes Hx Cardiac Cath: Yes (06/2014 No CAD) Hx Chest Pain: Yes Hx CHF: Yes Hx Edema: Yes Hx Heart Attack: No Hx Irregular Heartbeat: Yes Hx Coronary Artery Disease: No Hx Coronary Artery Bypass Graft: No Hx Coronary Stent: No Comment:: mitral valve prolapse, stress test last spring - NEURO Hx Neuro Disorders: Yes Hx TIA: Yes (x2 ) - GI Hx GI Disorders: Yes Hx Crohn's Disease: Yes Hx Reflux: Yes Hx Rectal Bleeding: Yes Hx Wt Loss/Wt Gain: Yes Hx of Polyps: Yes Comment:: gain 40# in 1 year - Hx Genitourinary Disorders: No - ENDOCRINE Hx Endocrine Disorders: Yes Hx Diabetes: Yes Hx Thyroid Disease: No - MUSCULOSKELETAL Hx Musculoskeletal Disorders: Yes Hx Arthritis: Yes - PSYCH Hx Psych Problems: Yes Hx Anxiety: Yes Hx Depression: Yes Hx Suicide Attempt: Yes (16 years ago) - HEMATOLOGY/ONCOLOGY Hx Hematology/Oncology Disorders: No Family Medical History Any Significant Family History?: Yes Hx Cancer: Grandparents Hx Depression: Mother Hx Diabetes: Mother Hx Heart Disease: Mother Hx HTN: Mother Hx Kidney Disease: Mother Hx Liver Disease: Mother Hx Seizures: Brother/Sister Physical Exam - General General Appearance: Alert, Oriented x3, Cooperative, No acute distress - Head Head exam: Normal inspection - Eye Eye exam: Normal appearance, PERRL Pupils: Normal accommodation - ENT ENT exam: Normal exam, Mucous membranes moist, Normal external ear exam, Normal orophraynx, TM's normal bilaterally Ear exam: Normal external inspection. negative: External canal tenderness Nasal Exam: Normal inspection. negative: Discharge, Sinus tenderness Mouth exam: Normal external inspection, Tongue normal Teeth exam: Normal inspection. negative: Dental caries Throat exam: Normal inspection. negative: Tonsillar erythema, Tonsillar exudate - Neck Neck exam: Normal inspection, Full ROM. negative: Tenderness - Respiratory Respiratory exam: Normal lung sounds bilaterally. negative: Respiratory distress - Cardiovascular Cardiovascular Exam: Regular rate, Normal rhythm, Normal heart sounds - GI/Abdominal GI/Abdominal exam: Soft, Normal bowel sounds. negative: Tenderness - Rectal Rectal exam: Deferred - exam: Deferred, Scrotal swelling (painful left scrotum and redness and hardware in the scrotum) - Extremities Extremities exam: Normal inspection, Full ROM, Normal capillary refill. negative: Tenderness - Back Back exam: Reports: Normal inspection, Full ROM. Denies: Muscle spasm, Rash noted, Tenderness - Neurological Neurological exam: Alert, Normal gait, Oriented X3, Reflexes normal - Psychiatric Psychiatric exam: Normal affect, Normal mood - Skin Skin exam: Dry, Intact, Normal color, Warm Course Vital Signs 07/03/18 12:54 Temperature 97.5 F L Pulse Rate 89 Respiratory 20 Rate Blood Pressure 124/66 Pulse Ox 96 - Reevaluation(s) Reevaluation #1: discussed case with dr. Nelson's PA Deena Bravo and informed her US of scrotum left side has blood flow to the testicle but a cyst was found above the testicle. Deena wanted patient to go to Dr. Pichardo's office 07/03/18 13:28 07/03/18 13:56 Medical Decision Making - Data Complexity MDM Data: Labs Ordered and/or Reviewed, X-Ray Ordered and/or Reviewed (US of scrotum has blood flow on the left testicle) - Lab Data Result diagrams: 07/03/18 13:08 07/03/18 13:08 Disposition Clinical Impression: Pain in scrotum or testicle Disposition: Home, Self-Care Condition: (1) Good Instructions: Scrotal Pain (ED) Additional Instructions: Go to Dr. Pichardo's office to see Deena Bravo, [address] [place] [address] [phone] Forms: Patient Portal Access Time of Disposition: 14:01 Quality - Quality Measures Quality Measures: N/A - Blood Pressure Screening Does Patient Have Any of the Following: No Blood Pressure Classification: Pre-Hypertensive BP Reading Systolic Measurement: 124 Diastolic Measurement: 66 Screening for High Blood Pressure: < Pre-Hypertensive BP, F/U Documented > [ G8950] Pre-Hypertensive Follow-up Interventions: Referral to alternative/primary care provider.
[2018-07-03] MEDS: KETOROLAC 60 MG/2 ML VIAL IM STA (13:35)
[2018-07-03 14:08] LABS: HEMATOCRIT 40.7 % (42.0-52.0); HEMOGLOBIN 13.1 gm/dl (14.0-18.0); MEAN CELL VOLUME 88.7 fl (81-97); MEAN CORPUSCULAR HEMOGLOBIN 28.5 pg (27-33); MEAN CORPUSCULAR HGB CONC 32.2 g/dl (32-36); MEAN PLATELET VOLUME 9.6 fl (7.4-10.4); PLATELET COUNT 264 K/uL (130-400); RED BLOOD COUNT 4.59 M/uL (4.40-5.70); WHITE BLOOD COUNT W/O DIFF 10.5 K/uL (4.2-12.2)
[2018-07-03 14:20] LABS: BLOOD UREA NITROGEN 8 mg/dL (6-20); CREATININE 0.6 mg/dL (0.7-1.2); EST GLOMERULAR FILTRATION RATE > 60 mL/min
[2018-07-03 14:23] LABS: GLUCOSE,RANDOM 138 mg/dL (74-109)
--- NOTE | 2018-07-04 13:09 | ULTRASOUND REPORT ---
EXAM: SCROTAL ULTRASOUND HISTORY: LEFT TESTICULAR PAIN. TECHNIQUE: Scrotal ultrasound was obtained. Comparison: CT of abdomen and pelvis 07/01/18. FINDINGS: The right testicle measures 4.1 x 2.0 x 2.2 cm. The left testicle measures 4.0 x 3.4 x 1.8 cm. Homogeneous testicular parenchymal echotexture. Bilateral intratesticular arterial waveforms and color flow are demonstrated. A simple appearing 1.0 cm right intratesticular cyst, otherwise no intratesticular mass is seen. Unremarkable appearance of the right epididymis. Left epididymal cyst measuring up to 1.2 cm with a single thin internal septation. Penile prosthesis components are incidentally noted. IMPRESSION: 1. NO EVIDENCE OF TESTICULAR TORSION. 2. MINIMALLY COMPLEX 1.2 CM LEFT EPIDIDYMAL HEAD CYST. 3. SIMPLE APPEARING 1 CM RIGHT INTRATESTICULAR CYST. JOB NUMBER: [id number] MTDD
== END 2018-07-03 14:24 | disposition home or self-care (01) ==
LOC: ER 12:44
DX: N50.82 Scrotal pain (principal); E11.9 Type 2 diabetes mellitus without complications; I50.9 Heart failure, unspecified; Z87.891 Personal history of nicotine dependence
CPT/HCPCS: 76870; 80048; 85027; 99283; J1885

== ENCOUNTER 2018-07-24 23:04 | Emergency (ER) | payer MEDICARE ==
[2018-07-24 23:28] LABS: URINE APPEARANCE CLEAR; URINE BILIRUBIN SMALL (NEGATIVE); URINE BLOOD NEGATIVE (NEGATIVE); URINE COLOR YELLOW; URINE GLUCOSE (UA) NEGATIVE (NEGATIVE); URINE KETONE NEGATIVE (NEGATIVE); URINE LEUKOCYTE ESTERASE NEGATIVE (NEGATIVE); URINE NITRITE NEGATIVE (NEGATIVE); URINE PROTEIN NEGATIVE (NEGATIVE)
[2018-07-24] MEDS ORDERED: 0.9 % SODIUM CHLORIDE 1,000 ML BAG IV ONE (23:59)
[2018-07-24] MEDS ORDERED: DICYCLOMINE HCL 10 MG/ML AMPUL IM ONE (23:59)
--- NOTE | 2018-07-25 00:13 | Emergency Department Record ---
History of Present Illness - General Chief Complaint: Abdominal Pain Stated Complaint: ABDOMINAL PAIN,POSSIBLE FEVER Time Seen by Provider: 07/24/18 23:42 Source: Patient Mode of Arrival: Ambulatory Limitations: No limitations - History of Present Illness Initial Comments: pt is having l sided abd similar to previous pain that is being worked up by a GI doctor. he has nausea and bile taste. there are no new symptoms MD Complaint: Abdominal pain Onset/Timin -: Month(s) Location: LUQ Severity scale (1-10): 9 Consistency: Constant Improves With: Nothing Worsens With: Eating Associated Symptoms: Nausea - Related Data Home Medications Medication Instructions Recorded Confirmed Last Taken Hydroxyzine Pamoate [Vistaril] 25 mg PO Q8H PRN 07/25/18 07/25/18 Unknown Minocycline HCl 100 mg PO BID 07/25/18 07/25/18 Unknown Sulfamethoxazole/Trimethoprim 1 each PO BID 07/25/18 07/25/18 Unknown [Bactrim Ds Tablet] Previous Rx's Medication Instructions Recorded Ondansetron [Zofran Odt] 4 mg PO NOW #15 tab.rapdis 04/02/18 Cephalexin [Keflex] 500 mg PO TID #21 cap 07/01/18 Allergies Allergy/AdvReac Type Severity Reaction Status Date / Time NSAIDS (Non-Steroidal AdvReac Instructed Verified 07/03/18 13:00 Anti-Inflamma to avoid Travel Screening - Travel/Exposure Within Last 30 Days Have you traveled within the last 30 days?: No - Travel Symptoms Symptom Screening: None Review of Systems Reviewed: No additional complaints except as noted below Constitutional: Reports: As per HPI. Denies: Chills, Fever, Malaise, Night sweats, Weakness, Weight change Eyes: Reports: As per HPI. Denies: Eye discharge, Eye pain, Photophobia, Vision change ENT: Reports: As per HPI. Denies: Congestion, Dental pain, Ear pain, Epistaxis , Hearing loss, Throat pain Respiratory: Reports: As per HPI. Denies: Cough, Dyspnea, Hemoptysis, Stridor, Wheezes Cardiovascular: Reports: As per HPI. Denies: Arrhythmia, Chest pain, Dyspnea on exertion, Edema, Murmurs, Orthopnea, Palpitations, Paroxysmal nocturnal dyspnea, Rheumatic Fever, Syncope Endocrine: Reports: As per HPI. Denies: Fatigue, Heat or cold intolerance, Polydipsia, Polyuria Gastrointestinal: Reports: As per HPI, Abdominal pain, Nausea. Denies: Constipation, Diarrhea, Hematemesis, Hematochezia, Melena, Vomiting Genitourinary: Reports: As per HPI. Denies: Dysuria, Frequency, Hematuria, Incontinence, Retention, Testicular pain, Testicular mass, Urgency Musculoskeletal: Reports: As per HPI. Denies: Arthralgia, Back pain, Gout, Joint swelling, Myalgia, Neck pain Skin: Reports: As per HPI. Denies: Bruising, Change in color, Change in hair/ nails, Lesions, Pruritus, Rash Neurological: Reports: As per HPI. Denies: Abnormal gait, Confusion, Headache, Numbness, Paresthesias, Seizure, Tingling, Tremors, Vertigo, Weakness Psychiatric: Reports: As per HPI. Denies: Anxiety, Auditory hallucinations, Depression, Homicidal thoughts, Suicidal thoughts, Visual hallucinations Hematological/Lymphatic: Reports: As per HPI. Denies: Anemia, Blood Clots, Easy bleeding, Easy bruising, Swollen glands Past Medical History - SOCIAL HISTORY Smoking Status: Former smoker - RESPIRATORY Hx Respiratory Disorders: Yes Hx Bronchitis: Yes Hx Sleep Apnea: Yes Hx of CPAP: Yes - CARDIOVASCULAR Hx Cardio Disorders: Yes Hx Cardiac Cath: Yes (06/2014 No CAD) Hx Chest Pain: Yes Hx CHF: Yes Hx Edema: Yes Hx Heart Attack: No Hx Irregular Heartbeat: Yes Hx Coronary Artery Disease: No Hx Coronary Artery Bypass Graft: No Hx Coronary Stent: No Comment:: mitral valve prolapse, stress test last spring - NEURO Hx Neuro Disorders: Yes Hx TIA: Yes (x2 ) - GI Hx GI Disorders: Yes Hx Crohn's Disease: Yes Hx Reflux: Yes Hx Rectal Bleeding: Yes Hx Wt Loss/Wt Gain: Yes Hx of Polyps: Yes Comment:: gain 40# in 1 year - Hx Genitourinary Disorders: No - ENDOCRINE Hx Endocrine Disorders: Yes Hx Diabetes: Yes Hx Thyroid Disease: No - MUSCULOSKELETAL Hx Musculoskeletal Disorders: Yes Hx Arthritis: Yes - PSYCH Hx Psych Problems: Yes Hx Anxiety: Yes Hx Depression: Yes Hx Suicide Attempt: Yes (16 years ago) - HEMATOLOGY/ONCOLOGY Hx Hematology/Oncology Disorders: No Family Medical History Any Significant Family History?: Yes Hx Cancer: Grandparents Hx Depression: Mother Hx Diabetes: Mother Hx Heart Disease: Mother Hx HTN: Mother Hx Kidney Disease: Mother Hx Liver Disease: Mother Hx Seizures: Brother/Sister Physical Exam - General General Appearance: Alert, Oriented x3, Cooperative, Mild distress - Head Head exam: Normal inspection - Eye Eye exam: Normal appearance, PERRL, EOMI Pupils: Normal accommodation - ENT ENT exam: Normal exam, Mucous membranes moist, Normal external ear exam, Normal orophraynx Ear exam: Normal external inspection. negative: External canal tenderness Nasal Exam: Normal inspection. negative: Discharge, Sinus tenderness Mouth exam: Normal external inspection, Tongue normal Teeth exam: Normal inspection. negative: Dental caries Throat exam: Normal inspection. negative: Tonsillar erythema, Tonsillar exudate - Neck Neck exam: Normal inspection, Full ROM. negative: Tenderness - Respiratory Respiratory exam: Normal lung sounds bilaterally. negative: Respiratory distress - Cardiovascular Cardiovascular Exam: Regular rate, Normal rhythm, Normal heart sounds - GI/Abdominal GI/Abdominal exam: Soft, Normal bowel sounds, Tenderness - Rectal Rectal exam: Deferred - exam: Deferred - Extremities Extremities exam: Normal inspection, Full ROM, Normal capillary refill. negative: Tenderness - Back Back exam: Reports: Normal inspection, Full ROM. Denies: Muscle spasm, Rash noted, Tenderness - Neurological Neurological exam: Alert, CN II-XII intact, Normal gait, Oriented X3 - Psychiatric Psychiatric exam: Normal affect, Normal mood - Skin Skin exam: Dry, Intact, Normal color, Warm Course Vital Signs 07/24/18 23:18 Temperature 98.6 F Pulse Rate [ 91 H Pulse Ox Probe] Respiratory 28 H Rate Blood Pressure 114/79 [Left Arm] Pulse Ox 97 - Reevaluation(s) Reevaluation #1: 07/25/18 01:37 was able toretrieve repost from ct on tuesday, no acute findings. pt sleeping, feels better Medical Decision Making - Lab Data Result diagrams: 07/25/18 00:18 07/25/18 00:18 Lab Results 07/24/18 Range/Units 23:28 Urine Color Yellow Urine Appearance Clear Urine pH 6.0 (5.0-8.0) Ur Specific Jbphh >= 1.030 (1.002-1.030) Urine Protein Negative (NEGATIVE) Urine Glucose (UA) Negative (NEGATIVE) Urine Ketones Negative (NEGATIVE) Urine Blood Negative (NEGATIVE) Urine Nitrite Negative (NEGATIVE) Urine Bilirubin Small H (NEGATIVE) Urine Urobilinogen 1.0 (0.20 - 1.00) E.U./dL Ur Leukocyte Esterase Negative (NEGATIVE) Disposition Disposition: Discharge Clinical Impression: Abdominal pain Qualifiers: Abdominal location: left upper quadrant Qualified Code(s): R10.12 - Left upper quadrant pain Disposition: Home, Self-Care Condition: (1) Good Instructions: Abdominal Pain (ED) Additional Instructions: follow up with GI doctor tomorrow. return sooner if worse Forms: Patient Portal Access Quality - Quality Measures Quality Measures: N/A - Blood Pressure Screening Does Patient Have Any of the Following: No Blood Pressure Classification: Normal BP Reading Systolic Measurement: 106 Diastolic Measurement: 63 Screening for High Blood Pressure: < Normal BP, F/U Not Required > [G8783]
[2018-07-25 00:27] LABS: HEMOGLOBIN 12.8 gm/dl (14.0-18.0); MEAN CELL VOLUME 88.8 fl (81-97); MEAN CORPUSCULAR HGB CONC 32.8 g/dl (32-36); MEAN PLATELET VOLUME 9.7 fl (7.4-10.4); PLATELET COUNT 251 K/uL (130-400); RED BLOOD COUNT 4.39 M/uL (4.40-5.70); RED CELL DISTRIBUTION WIDTH 14.4 % (11.5-14.5)
[2018-07-25 00:28] LABS: MEAN CORPUSCULAR HEMOGLOBIN 29.1 pg (27-33)
[2018-07-25 00:39] LABS: BLOOD UREA NITROGEN 8 mg/dL (6-20); CREATININE 0.6 mg/dL (0.7-1.2); EST GLOMERULAR FILTRATION RATE > 60 mL/min
[2018-07-25 00:40] LABS: LIPASE 23 U/L (13-60)
[2018-07-25 00:42] LABS: GLUCOSE,RANDOM 181 mg/dL (74-109)
[2018-07-25 00:45] LABS: ALBUMIN 3.8 g/dL (4.0-5.0); ALKALINE PHOSPHATASE 65 U/L (40-129); ALT/SGPT 18 U/L (<41); AST/SGOT 12 U/L (10.0-50.0); BILIRUBIN,DIRECT < 0.2 mg/dL (0-0.3)
== END 2018-07-25 01:45 | disposition home or self-care (01) ==
LOC: ER 23:04
DX: R10.12 Left upper quadrant pain (principal); R11.0 Nausea; I50.9 Heart failure, unspecified; Z87.891 Personal history of nicotine dependence
CPT/HCPCS: 80048; 80076; 81003; 83690; 85027; 96372; 99284; J7030

== ENCOUNTER 2018-09-13 21:08 | Emergency (ER) | payer MEDICARE ==
--- NOTE | 2018-09-13 21:16 | Emergency Department Record ---
History of Present Illness - General Chief complaint: Extremity Problem Stated complaint: RT HAND PAIN/SWELLING Time Seen by Provider: 09/13/18 21:12 Source: Patient Mode of Arrival: Ambulatory Limitations: No limitations - History of Present Illness Initial comments: 48 yo male present with right hand pain. He punched his cell phone 30 minutes ago. No other pain or injuries. No skin lacerations. No deformities on arrival. He is right handed. He has had a cough for a week as well with green sputum. No shortness of breath or chest pain. MD Complaint: Joint pain -: Minutes(s) (30) Location: Right History of Same: No -: Yes Arthralgia Radiation: Distal Quality: Aching Consistency: Constant Improves with: Nothing Worsens with: Palpation, Weight bearing Associated Symptoms: Denies other symptoms - Related Data Home Medications Medication Instructions Recorded Confirmed Last Taken Bupropion HCl [Wellbutrin Xl] 150 mg PO DAILY 09/13/18 09/13/18 09/13/18 Sulfasalazine [Azulfidine] 500 mg PO TID 09/13/18 09/13/18 09/13/18 Previous Rx's Medication Instructions Recorded Ondansetron [Zofran Odt] 4 mg PO NOW #15 tab.rapdis 04/02/18 Azithromycin [Zithromax] 250 mg PO DAILY #4 tab 09/13/18 Allergies Allergy/AdvReac Type Severity Reaction Status Date / Time bee venom protein (honey bee) Allergy NAUSEA Verified 09/13/18 21:17 NSAIDS (Non-Steroidal AdvReac Instructed Verified 07/03/18 13:00 Anti-Inflamma to avoid tramadol AdvReac VOMITING Verified 09/13/18 21:17 Review of Systems Constitutional: Reports: Fever (low grade a couple days). Denies: Chills, Weakness Eyes: Denies: Eye discharge ENT: Reports: Congestion. Denies: Ear pain, Throat pain Respiratory: Reports: Cough. Denies: Dyspnea, Hemoptysis, Wheezes Cardiovascular: Denies: Chest pain, Syncope Endocrine: Denies: Fatigue Gastrointestinal: Denies: Abdominal pain, Nausea, Vomiting Genitourinary: Denies: Dysuria, Frequency, Hematuria Musculoskeletal: Reports: Arthralgia Skin: Denies: Bruising, Change in color, Rash Neurological: Denies: Headache Psychiatric: Denies: Anxiety Hematological/Lymphatic: Denies: Easy bleeding, Easy bruising Past Medical History - SOCIAL HISTORY Smoking Status: Former smoker - RESPIRATORY Hx Respiratory Disorders: Yes Hx Bronchitis: Yes Hx Sleep Apnea: Yes Hx of CPAP: Yes - CARDIOVASCULAR Hx Cardio Disorders: Yes Hx Cardiac Cath: Yes (06/2014 No CAD) Hx Chest Pain: Yes Hx CHF: Yes Hx Edema: Yes Hx Heart Attack: No Hx Irregular Heartbeat: Yes Hx Coronary Artery Disease: No Hx Coronary Artery Bypass Graft: No Hx Coronary Stent: No Comment:: mitral valve prolapse, stress test last spring - NEURO Hx Neuro Disorders: Yes Hx TIA: Yes (x2 ) - GI Hx GI Disorders: Yes Hx Crohn's Disease: Yes Hx Reflux: Yes Hx Rectal Bleeding: Yes Hx Wt Loss/Wt Gain: Yes Hx of Polyps: Yes Comment:: gain 40# in 1 year - Hx Genitourinary Disorders: No - ENDOCRINE Hx Endocrine Disorders: Yes Hx Diabetes: Yes Hx Thyroid Disease: No - MUSCULOSKELETAL Hx Musculoskeletal Disorders: Yes Hx Arthritis: Yes - PSYCH Hx Psych Problems: Yes Hx Anxiety: Yes Hx Depression: Yes Hx Suicide Attempt: Yes (16 years ago) - HEMATOLOGY/ONCOLOGY Hx Hematology/Oncology Disorders: No Family Medical History Hx Cancer: Grandparents Hx Depression: Mother Hx Diabetes: Mother Hx Heart Disease: Mother Hx HTN: Mother Hx Kidney Disease: Mother Hx Liver Disease: Mother Hx Seizures: Brother/Sister Physical Exam - General General Appearance: Alert, Oriented x3, Cooperative, No acute distress - Head Head exam: Atraumatic, Normocephalic, Normal inspection - Eye Eye exam: Normal appearance. negative: PERRL, Conjunctival injection, Scleral icterus - ENT ENT exam: Normal exam, Mucous membranes moist, Normal orophraynx, TM's normal bilaterally Ear exam: Normal external inspection Nasal Exam: Normal inspection Mouth exam: Normal external inspection Teeth exam: Normal inspection Throat exam: Normal inspection. negative: Tonsillar erythema, Tonsillomegaly, Tonsillar exudate, R peritonsillar mass, L peritonsillar mass - Neck Neck exam: Normal inspection - Respiratory Respiratory exam: Normal lung sounds bilaterally. negative: Accessory muscle use, Respiratory distress, Rhonchi, Stridor, Wheezes - Cardiovascular Cardiovascular Exam: Regular rate, Normal rhythm, Normal heart sounds Peripheral Pulses: 2+: Radial (R) - Extremities Extremities exam: Normal inspection, Full ROM, Normal capillary refill, Tenderness. negative: Pedal edema Image of Hand: 1 - tender, intact skin, no deformity, full ROM - Neurological Neurological exam: Alert, Oriented X3 - Psychiatric Psychiatric exam: Normal affect, Normal mood - Skin Skin exam: Dry, Intact, Normal color, Warm Course - Reevaluation(s) Reevaluation #1: The XR was reviewed. No definite fracture or dislocation 09/13/18 21:44 Disposition Disposition: Discharge Clinical Impression: Contusion of hand, right, Bronchitis Disposition: Home, Self-Care Condition: (1) Good Instructions: Acute Bronchitis (ED), Hand Sprain (ED) Additional Instructions: Ice the sore hand and avoid heavy lifting Call your doctor for a recheck in the next week if pain continues Prescriptions: Azithromycin [Zithromax] 250 mg PO DAILY #4 tab Forms: Patient Portal Access Time of Disposition: 21:50 Quality - Quality Measures Quality Measures: N/A - Blood Pressure Screening Does Patient Have Any of the Following: No Blood Pressure Classification: Pre-Hypertensive BP Reading Systolic Measurement: 135 Diastolic Measurement: 78 Screening for High Blood Pressure: < Pre-Hypertensive BP, F/U Documented > [ G8950] Pre-Hypertensive Follow-up Interventions: Referral to alternative/primary care provider.
[2018-09-13] MEDS: ACETAMINOPHEN 500 MG TABLET PO ONE (21:44)
[2018-09-13] MEDS: AZITHROMYCIN 500 MG TABLET PO ONE (21:44)
--- NOTE | 2018-09-15 15:41 | RADIOLOGY REPORT ---
DATE: 09/13/2018 at 2124. EXAM: RIGHT HAND, THREE VIEWS. HISTORY: Pain in right hand after punching phone. TECHNIQUE: Three views of the right hand. COMPARISON: None. ENCOUNTER: Initial. FINDINGS: There is normal bone mineralization. No fracture, dislocation, or destructive bone lesion is seen. Early marginal spurring of the distal interphalangeal joints is questioned. No periarticular erosion. The articular relations are otherwise maintained. No focal soft tissue abnormality is identified. IMPRESSION: NO CONVINCING ACUTE FRACTURE NOR DISLOCATION. Job Number: [id number] [facility]
== END 2018-09-13 22:07 | disposition home or self-care (01) ==
LOC: ER 21:08
DX: S60.221A Contusion of right hand, initial encounter (principal); J20.9 Acute bronchitis, unspecified; E11.9 Type 2 diabetes mellitus without complications; W22.8XXA Striking against or struck by other objects, initial encounter; Z87.891 Personal history of nicotine dependence
CPT/HCPCS: 99283; 99284

== ENCOUNTER 2018-09-24 11:53 | Emergency (ER) | payer MEDICARE ==
--- NOTE | 2018-09-24 12:09 | Emergency Department Record ---
History of Present Illness - General Chief Complaint: Cough Stated Complaint: NAVJOT,COUGH Time Seen by Provider: 09/24/18 12:05 Source: Patient, RN notes reviewed Mode of Arrival: Ambulatory - History of Present Illness Initial Comments: 2 weeks of a cough and diagnosesd with bronchitis and seen in ED september 13 and placed on antibiotic and an inhaler ventilin. H CHF and PE 2017 and on eliquis, primary Dr. is Dr. Leni Alegre is his primary Dr in [place]. SOB with exertion and currently on lasix three times a day. 20 mg. Weight is up 10 pounds in one week. 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 EKG done at [facility] and he was told it was good. Today given albuterol neb at [facility] and told if worse go to ED and he felt worse and came to ED. patient didn't tell anyone about chest pain until I was taking his history MD Complaint: Cough Onset/Timin -: Week(s) Consistency: Intermittent - Related Data Previous Rx's Medication Instructions Recorded Ondansetron [Zofran Odt] 4 mg PO NOW #15 tab.rapdis 04/02/18 Cephalexin [Keflex] 500 mg PO QID #40 cap 09/24/18 Prednisone [Prednisone 20Mg] 20 mg PO BID #10 tab 09/24/18 Allergies Allergy/AdvReac Type Severity Reaction Status Date / Time bee venom protein (honey bee) Allergy NAUSEA Verified 09/24/18 11:56 NSAIDS (Non-Steroidal AdvReac Instructed Verified 09/24/18 11:56 Anti-Inflamma to avoid tramadol AdvReac VOMITING Verified 09/24/18 11:56 Travel Screening - Travel/Exposure Within Last 30 Days Have you traveled within the last 30 days?: No - Travel/Exposure Within Last Year Have you traveled outside the [place] in the last year?: No - Additonal Travel Details Have you been exposed to anyone with a communicable illness?: No - Travel Symptoms Symptom Screening: None Review of Systems Reviewed: No additional complaints except as noted below Constitutional: Reports: As per HPI. Denies: Chills, Fever, Malaise, Night sweats, Weakness, Weight change Eyes: Reports: As per HPI. Denies: Eye discharge, Eye pain, Photophobia, Vision change ENT: Reports: As per HPI. Denies: Congestion, Dental pain, Ear pain, Epistaxis, Hearing loss, Throat pain Respiratory: Reports: As per HPI, Cough, Dyspnea. Denies: Hemoptysis, Stridor, Wheezes Cardiovascular: Reports: As per HPI, Chest pain. Denies: Arrhythmia, Dyspnea on exertion, Edema, Murmurs, Orthopnea, Palpitations, Paroxysmal nocturnal dyspnea, Rheumatic Fever, Syncope Endocrine: Reports: As per HPI. Denies: Fatigue, Heat or cold intolerance, Polydipsia, Polyuria Gastrointestinal: Reports: As per HPI. Denies: Abdominal pain, Constipation, Diarrhea, Hematemesis, Hematochezia, Melena, Nausea, Vomiting Genitourinary: Reports: As per HPI. Denies: Dysuria, Frequency, Hematuria, Incontinence, Retention, Testicular pain, Testicular mass, Urgency Musculoskeletal: Reports: As per HPI. Denies: Arthralgia, Back pain, Gout, Joint swelling, Myalgia, Neck pain Skin: Reports: As per HPI. Denies: Bruising, Change in color, Change in hair/nails, Lesions, Pruritus, Rash Neurological: Reports: As per HPI. Denies: Abnormal gait, Confusion, Headache, Numbness, Paresthesias, Seizure, Tingling, Tremors, Vertigo, Weakness Psychiatric: Reports: As per HPI. Denies: Anxiety, Auditory hallucinations, Depression, Homicidal thoughts, Suicidal thoughts, Visual hallucinations Hematological/Lymphatic: Reports: As per HPI. Denies: Anemia, Blood Clots, Easy bleeding, Easy bruising, Swollen glands Past Medical History - SOCIAL HISTORY Smoking Status: Former smoker Alcohol Use: None Drug Use: None - RESPIRATORY Hx Respiratory Disorders: Yes Hx Bronchitis: Yes Hx Sleep Apnea: Yes Hx of CPAP: Yes - CARDIOVASCULAR Hx Cardio Disorders: Yes Hx Cardiac Cath: Yes (06/2014 No CAD) Hx Chest Pain: Yes Hx CHF: Yes Hx Edema: Yes Hx Heart Attack: No Hx Irregular Heartbeat: Yes Hx Coronary Artery Disease: No Hx Coronary Artery Bypass Graft: No Hx Coronary Stent: No Comment:: mitral valve prolapse, stress test last spring - NEURO Hx Neuro Disorders: Yes Hx TIA: Yes (x2 2006/2006) - GI Hx GI Disorders: Yes Hx Crohn's Disease: Yes Hx Reflux: Yes Hx Rectal Bleeding: Yes Hx Wt Loss/Wt Gain: Yes Hx of Polyps: Yes Comment:: gain 40# in 1 year - Hx Genitourinary Disorders: No - ENDOCRINE Hx Endocrine Disorders: Yes Hx Diabetes: Yes Hx Thyroid Disease: No - MUSCULOSKELETAL Hx Musculoskeletal Disorders: Yes Hx Arthritis: Yes - PSYCH Hx Psych Problems: Yes Hx Anxiety: Yes Hx Depression: Yes Hx Suicide Attempt: Yes (16 years ago) - HEMATOLOGY/ONCOLOGY Hx Hematology/Oncology Disorders: No Family Medical History Any Significant Family History?: Yes Hx Cancer: Grandparents Hx Depression: Mother Hx Diabetes: Mother Hx Heart Disease: Mother Hx HTN: Mother Hx Kidney Disease: Mother Hx Liver Disease: Mother Hx Seizures: Brother/Sister Physical Exam - General General Appearance: Alert, Oriented x3, Cooperative, No acute distress - Head Head exam: Normal inspection - Eye Eye exam: Normal appearance, PERRL Pupils: Normal accommodation - ENT ENT exam: Normal exam, Mucous membranes moist, Normal external ear exam, Normal orophraynx, TM's normal bilaterally Ear exam: Normal external inspection. negative: External canal tenderness Nasal Exam: Normal inspection. negative: Discharge, Sinus tenderness Mouth exam: Normal external inspection, Tongue normal Teeth exam: Normal inspection. negative: Dental caries Throat exam: Normal inspection. negative: Tonsillar erythema, Tonsillar exudate - Neck Neck exam: Normal inspection, Full ROM. negative: Tenderness - Respiratory Respiratory exam: Decreased breath sounds. negative: Respiratory distress - Cardiovascular Cardiovascular Exam: Regular rate, Normal rhythm, Normal heart sounds - GI/Abdominal GI/Abdominal exam: Soft, Normal bowel sounds. negative: Tenderness - Rectal Rectal exam: Deferred - exam: Deferred - Extremities Extremities exam: Normal inspection, Full ROM, Normal capillary refill. negative: Tenderness - Back Back exam: Reports: Normal inspection, Full ROM. Denies: Muscle spasm, Rash noted, Tenderness - Neurological Neurological exam: Alert, Normal gait, Oriented X3, Reflexes normal - Psychiatric Psychiatric exam: Normal affect, Normal mood - Skin Skin exam: Dry, Intact, Normal color, Warm Course Vital Signs 09/24/18 12:00 Temperature 99.5 F Pulse Rate 102 H Respiratory 20 Rate Blood Pressure 125/78 Pulse Ox 98 - Reevaluation(s) Reevaluation #1: will obtain a repeat trop t 09/24/18 13:29 Reevaluation #2: patient said his chest pain has been on and off for 2 months and late 2017 did a nuclear stress test. patient said that was negative. 09/24/18 13:35 Reevaluation #3: repeat trop t at 2:30pm 09/24/18 13:39 Reevaluation #4: Patient said the breathing treatment help at [facility] today. 09/24/18 14:19 Reevaluation #5: patient is feeling better 09/24/18 14:53 Medical Decision Making - Data Complexity MDM Data: Labs Ordered and/or Reviewed (trop t negative and wbc 13,300), X-Ray Ordered and/or Reviewed (stable chest comparied to the last chest xray), EKG Ordered and/or Reviewed (NSR, similiar to EKG 02/19/2018, no acute changes nonspecific ST changes in 2) - Lab Data Result diagrams: 09/24/18 12:30 09/24/18 12:30 - EKG Data -: EKG Interpreted by Me Disposition Clinical Impression: Cough Dyspnea Qualifiers: Dyspnea type: dyspnea on exertion Qualified Code(s): R06.09 - Other forms of dyspnea Chest pain Qualifiers: Chest pain type: unspecified Qualified Code(s): R07.9 - Chest pain, unspecified Hyperactive airway disease Qualifiers: Asthma severity: mild Asthma persistence: intermittent Asthma complication type: with acute exacerbation Qualified Code(s): J45.21 - Mild intermittent asthma with (acute) exacerbation Condition: (1) Good Instructions: Acute Bronchitis (ED), Bronchospasm (ED) Additional Instructions: follow up with family DR in 3-4 days Prescriptions: Cephalexin [Keflex] 500 mg PO QID #40 cap Prednisone [Prednisone 20Mg] 20 mg PO BID #10 tab Forms: Patient Portal Access Time of Disposition: 15:15 Quality - Quality Measures Quality Measures: N/A - Blood Pressure Screening Does Patient Have Any of the Following: No Blood Pressure Classification: Pre-Hypertensive BP Reading Systolic Measurement: 125 Diastolic Measurement: 78 Screening for High Blood Pressure: < Pre-Hypertensive BP, F/U Documented > [G8950] Pre-Hypertensive Follow-up Interventions: Referral to alternative/primary care provider.
[2018-09-24] MEDS ORDERED: ASPIRIN 81 MG CHEWABLE TABLET PO ONE (12:14)
[2018-09-24 12:49] LABS: HEMATOCRIT 40.8 % (42.0-52.0); HEMOGLOBIN 13.3 gm/dl (14.0-18.0); MEAN CELL VOLUME 91.3 fl (81-97); MEAN CORPUSCULAR HGB CONC 32.6 g/dl (32-36); PLATELET COUNT 285 K/uL (130-400); RED BLOOD COUNT 4.47 M/uL (4.40-5.70); RED CELL DISTRIBUTION WIDTH 13.9 % (11.5-14.5); WHITE BLOOD COUNT W/O DIFF 13.3 K/uL (4.2-12.2)
[2018-09-24 12:52] LABS: MEAN CORPUSCULAR HEMOGLOBIN 29.7 pg (27-33)
[2018-09-24] MEDS ORDERED: BUMETANIDE IV 0.25 MG/ML VIAL IVP ONE (12:58)
[2018-09-24 12:59] LABS: BLOOD UREA NITROGEN 7 mg/dL (6-20)
[2018-09-24 13:00] LABS: CREATININE 0.6 mg/dL (0.7-1.2); EST GLOMERULAR FILTRATION RATE > 60 mL/min
[2018-09-24 13:02] LABS: GLUCOSE,RANDOM 174 mg/dL (74-109)
[2018-09-24 13:03] LABS: INR 1.1; PROTHROMBIN TIME (PATIENT) 11.3 SECONDS (9.5-12.1)
[2018-09-24 13:07] LABS: NTpro B-NATRIURETIC PEPTIDE 39.18 pg/mL (<125)
[2018-09-24] MEDS ORDERED: METHYLPREDNISOLONE PF 125MG/VIAL IVP ONE (13:30)
[2018-09-24] MEDS ORDERED: IPRATROPIUM/ALBUTEROL (0.5MG/3MG) NEB INH ONE (14:16)
[2018-09-24 14:55] LABS: ABSOLUTE NEUTROPHIL COUNT 10.62
--- NOTE | 2018-09-25 08:34 | RADIOLOGY REPORT ---
EXAM: CHEST, TWO VIEWS HISTORY: CHEST PAIN. TECHNIQUE: Two views of the chest are provided along with the comparison study dated 02/03/18. FINDINGS: Mild cardiomegaly is noted. The hoang appear unremarkable. There is no radiographic evidence of a focal infiltrate or pleural effusion. There is pleural thickening identified along the bilateral chest hunter. This finding appears to be chronic. No pneumothorax is noted. IMPRESSION: STABLE RADIOGRAPHIC APPEARANCE OF THE CHEST WITH RESPECT TO THE PRIOR EXAMINATION. JOB NUMBER: [id number] [facility]
== END 2018-09-24 15:28 | disposition home or self-care (01) ==
LOC: ER 11:53
DX: J45.21 Mild intermittent asthma with (acute) exacerbation (principal); R07.9 Chest pain, unspecified; R05 Cough; R06.02 Shortness of breath; I50.9 Heart failure, unspecified; E11.9 Type 2 diabetes mellitus without complications; Z79.01 Long term (current) use of anticoagulants
CPT/HCPCS: 71046; 80048; 83880; 84484; 85027; 85610; 85730; 93005; 93010; 94640; 96374; 96375; 99284; J2930

== ENCOUNTER 2018-10-18 19:55 | Emergency (ER) | payer MEDICARE ==
[2018-10-18] MEDS ORDERED: TROPICAMIDE 1% 15ML BTL OP ONE ×2 (20:40)
--- NOTE | 2018-10-18 20:43 | Emergency Department Record ---
History of Present Illness - General Chief complaint: Eye Problem Stated complaint: LT EYE FLASHING Time Seen by Provider: 10/18/18 19:59 Source: Patient Mode of Arrival: Ambulatory Limitations: No limitations - History of Present Illness Initial comments: 48 yo male presents to ED for evaluation of "light flashes from the side of my left eye" x 1 hour. Patient denies injury or trauma to the eye, denies change in vision. Patient denies history of retinal detachment previously. chief complaint: Other Onset/Timin -: Hour(s) Onset Description: Sudden Location: Left eye Place: Home If Injury: None Severity scale (1-10): 3 Consistency: Constant Associated Symptoms: None Treatments Prior to Arrival: None - Related Data Visual acuity (L) = 20/: 10 Visual acuity (R) = 20/: 20 With correction: No Hx Tetanus Toxoid Vaccination: Yes Year of Tetanus Vaccination: unknown Home Medications Medication Instructions Recorded Confirmed Last Taken Albuterol Sulfate [Ventolin Hfa] 1 - 2 puff IH .EVERY 4-6 HOURS PRN 10/18/18 10/18/18 10/18/18 Fluticasone/Salmeterol [Advair 1 each IH BID 10/18/18 10/18/18 10/18/18 100-50 Diskus] Allergies Allergy/AdvReac Type Severity Reaction Status Date / Time bee venom protein (honey bee) Allergy NAUSEA Verified 09/24/18 11:56 NSAIDS (Non-Steroidal AdvReac Instructed Verified 09/24/18 11:56 Anti-Inflamma to avoid tramadol AdvReac VOMITING Verified 09/24/18 11:56 Travel Screening - Travel/Exposure Within Last 30 Days Have you traveled within the last 30 days?: No - Travel/Exposure Within Last Year Have you traveled outside the [place] in the last year?: No - Additonal Travel Details Have you been exposed to anyone with a communicable illness?: No - Travel Symptoms Symptom Screening: None Review of Systems Constitutional: Denies: Chills, Fever, Malaise, Night sweats Eyes: Reports: Other. Denies: Eye discharge, Eye pain ENT: Denies: Congestion, Ear pain, Epistaxis Respiratory: Denies: Cough, Dyspnea Cardiovascular: Denies: Chest pain, Dyspnea on exertion Endocrine: Denies: Fatigue, Heat or cold intolerance Gastrointestinal: Denies: Abdominal pain, Nausea, Vomiting Genitourinary: Denies: Incontinence, Retention Musculoskeletal: Denies: Arthralgia, Back pain Skin: Denies: Bruising, Change in color Neurological: Denies: Abnormal gait, Confusion, Headache, Seizure Psychiatric: Denies: Anxiety Hematological/Lymphatic: Denies: Anemia, Blood Clots Past Medical History - SOCIAL HISTORY Smoking Status: Former smoker Alcohol Use: None Drug Use: None - RESPIRATORY Hx Respiratory Disorders: Yes Hx Bronchitis: Yes Hx Sleep Apnea: Yes Hx of CPAP: Yes - CARDIOVASCULAR Hx Cardio Disorders: Yes Hx Cardiac Cath: Yes (06/2014 No CAD) Hx Chest Pain: Yes Hx CHF: Yes Hx Edema: Yes Hx Heart Attack: No Hx Irregular Heartbeat: Yes Hx Coronary Artery Disease: No Hx Coronary Artery Bypass Graft: No Hx Coronary Stent: No Comment:: mitral valve prolapse, stress test last spring - NEURO Hx Neuro Disorders: Yes Hx TIA: Yes (x2 ) - GI Hx GI Disorders: Yes Hx Crohn's Disease: Yes Hx Reflux: Yes Hx Rectal Bleeding: Yes Hx Wt Loss/Wt Gain: Yes Hx of Polyps: Yes Comment:: gain 40# in 1 year - Hx Genitourinary Disorders: No - ENDOCRINE Hx Endocrine Disorders: Yes Hx Diabetes: Yes (type 2) Hx Thyroid Disease: No - MUSCULOSKELETAL Hx Musculoskeletal Disorders: Yes Hx Arthritis: Yes - PSYCH Hx Psych Problems: Yes Hx Anxiety: Yes Hx Depression: Yes Hx Suicide Attempt: Yes (16 years ago) - HEMATOLOGY/ONCOLOGY Hx Hematology/Oncology Disorders: No Family Medical History Any Significant Family History?: Yes Hx Cancer: Grandparents Hx Depression: Mother Hx Diabetes: Mother Hx Heart Disease: Mother Hx HTN: Mother Hx Kidney Disease: Mother Hx Liver Disease: Mother Hx Seizures: Brother/Sister Physical Exam - General General Appearance: Alert, Oriented x3, Cooperative, No acute distress Limitations: No limitations - Head Head exam: Atraumatic, Normocephalic, Normal inspection Head exam detail: negative: Abrasion, Contusion, Horn's sign, General tenderness, Hematoma, Laceration - Eye Eye exam: Normal appearance. negative: Conjunctival injection, Periorbital swelling, Periorbital tenderness, Scleral icterus With correction: No - ENT Ear exam: negative: Auricular hematoma, Auricular trauma Nasal Exam: negative: Active bleeding, Discharge, Dried blood, Foreign body Mouth exam: negative: Drooling, Laceration, Muffled voice, Tongue elevation - Neck Neck exam: Normal inspection. negative: Meningismus, Tenderness - Respiratory Respiratory exam: Normal lung sounds bilaterally. negative: Rales, Respiratory distress, Rhonchi, Stridor - Cardiovascular Cardiovascular Exam: Regular rate, Normal rhythm, Normal heart sounds - GI/Abdominal GI/Abdominal exam: Soft. negative: Rebound, Rigid, Tenderness - Rectal Rectal exam: Deferred - exam: Deferred - Extremities Extremities exam: Normal inspection. negative: Pedal edema, Tenderness - Back Back exam: Denies: CVA tenderness (R), CVA tenderness (L) - Neurological Neurological exam: Alert, Normal gait, Oriented X3 - Psychiatric Psychiatric exam: Normal affect, Normal mood - Skin Skin exam: Normal color. negative: Abrasion Type of lesion: negative: abrasion Course Vital Signs 10/18/18 20:06 Temperature 98.3 F Pulse Rate [ 106 H Pulse Ox Probe] Respiratory 28 H Rate Blood Pressure 115/74 [Left Arm] Pulse Ox 97 - Reevaluation(s) Reevaluation #1: 10/18/18 20:44 VA reviewed: 20/10 Left eye 20/20 Right eye US evaluated was performed to determine if possible retinal detachment may be present, no indication of retinal detachment on examination. Mydriatic drops placed into the eye, will assess with Saba-optic in 5-10 minutes. Reevaluation #2: 10/18/18 21:05 Disc was visualized, ratio appears about 0.6 with panoptic. Patient reports his "flashes" have resolved. Case was discussed with Dr. Campos, will have patient seen in the clinic at Noon tomorrow. Will have the patient arrive tomorrow for evaluation. Disposition Disposition: Discharge Clinical Impression: Vitreous flashes of both eyes Disposition: Home, Self-Care Condition: (2) Stable Instructions: Ocular Migraine (ED) Additional Instructions: Return to ED if your symptoms worsen or if you have any concerns. Plan on arriving to the [facility] clinic around 12:00 tomorrow unless you hear differently from Dr. Campos. Forms: Patient Portal Access Time of Disposition: 21:12 Quality - Quality Measures Quality Measures: N/A - Blood Pressure Screening Does Patient Have Any of the Following: No Blood Pressure Classification: Normal BP Reading Systolic Measurement: 115 Diastolic Measurement: 74 Screening for High Blood Pressure: < Normal BP, F/U Not Required > [G7789]
== END 2018-10-18 21:16 | disposition home or self-care (01) ==
LOC: ER 19:55
DX: H53.19 Other subjective visual disturbances (principal)
CPT/HCPCS: 99283